=== PATIENT | female | born 1935 | race Caucasian/White ===

== ENCOUNTER 2016-07-21 15:24 | Inpatient (IN) | payer OTHER ==
[~2016-07-21] VITALS: Ht 157.5 cm; Wt 50.8 kg
--- NOTE | 2016-07-21 15:32 | NUR ---
BIBA FROM [facility] FOR RIGHT HIP PAIN S/P FALL. PT WAS TRYING TO MOVE HER WHEELCHAIR, FELL DOWN TO FLOOR ON BUTTOCKS. DENIES HEADSTRIKE OR LOC. UPON ARRIVAL PT A+OX4, RIGHT HIP ROTATED. C/O PAIN FROM RIGHT HIP DOWN TO RIGHT ANKLE. SHAHRIAR HENDRIX AT BEDSIDE UPON ARRIVAL.
--- NOTE | 2016-07-21 15:44 | ED MVC/FALL/TRAUMA COMPLAINT ---
History of Present Illness General Chief Complaint: Fall Stated Complaint: BIBA FOR FALL Source: patient, EMS Exam Limitations: no limitations Vital Signs & Intake/Output Vital Signs & Intake/Output Vital Signs Date Time Temp Pulse Resp B/P Pulse O2 O2 Flow FiO2 Ox Delivery Rate 07/24 1404 98.0 80 20 125/70 94 / 0708 98.1 86 20 118/64 96 Room Air 07/23 2221 99.0 84 20 124/60 94 Room Air ED Intake and Output 07/24 0000 07/23 1200 Intake Total 2605 700 Output Total 650 275 Balance 1955 425 Intake, Blood 700 Product Intake, IV 825 600 Intake, Oral 1080 100 Number 3 0 Bowel Movements Output, Urine 650 275 Allergies Coded Allergies: Influenza Virus Vaccines (NOTED ON W-10 07/21/16) Reconcile Medications Acetaminophen 500 MG TABLET 2 TAB PO BID PAIN (Reported) Acetaminophen (Acephen) 650 MG SUPP.RECT 1 SUPP FL Q4H PRN PAIN/TEMP>101 ( Reported) Acetaminophen 325 MG CAPSULE 2 CAP PO Q4H PRN PAIN/TEMP>101 (Reported) Aspirin (Ecotrin*) 81 MG TABLET.DR 1 TAB PO DAILY HEART/BLOOD (Reported) Bisacodyl (Dulcolax) 10 MG SUPP.RECT 1 SUP RC DAILY PRN CONSTIPATION ( Reported) Carbidopa/Levodopa (Carbidopa-Levodopa 25-100 Tab) 25 MG-100 MG TABLET 2 TAB PO TID PARKINSONS (Reported) Cyanocobalamin (Vitamin B-12) (Cyanocobalamin Injection) 1,000 MCG/ML VIAL 1 ML IM Q30D SUPPLEMENT (Reported) Diclofenac Sodium (Voltaren) 1 % GEL..GRAM. 4 GM TOP TID NECK (Reported) apply to affected area(s) Docusate Sodium (Colace) 100 MG CAPSULE 1 CAP PO DAILY STOOL SOFTENER ( Reported) Ergocalciferol (Vitamin D2) (Vitamin D2) 50,000 UNIT CAPSULE 1 CAP PO Q30D SUPPLMENT (Reported) Escitalopram Oxalate (Lexapro) 10 MG TABLET 1 TAB PO QAM MENTAL HEALTH ( Reported) Gabapentin (Neurontin) 300 MG CAPSULE 1 CAP PO QHS UNKNOWN (Reported) Gabapentin (Neurontin) 100 MG CAPSULE 1 CAP PO TID UNKNOWN (Reported) Magnesium Hydroxide (Milk Of Magnesia) 400 MG/5 ML ORAL.SUSP 30 ML PO Q3D PRN CONSTIPATION (Reported) Melatonin 3 MG TABLET 1 TAB PO QPM SUPPLEMENT (Reported) Morphine Sulfate (Morphine Sulfate ER) 60 MG TABLET.ER 1 TAB PO Q12H PAIN ( Reported) Na Phos,M-B/Na Phos,Di-Ba (Fleet Enema) 19 GRAM-7 GRAM/118 ML ENEMA 1 E RC DAILY PRN CONSTIPATION (Reported) Naloxone HCl 0.4 MG/ML VIAL 0.4 MG SYDNEE AD PRN OPIOID REDUCED RESP. DEPRESSIO (Reported) Oxycodone HCl 5 MG TABLET 1 TAB PO Q12H PRN PAIN (Reported) Propylene Glycol/Peg 400/Pf (Systane 0.3-0.4% Eye Drops) 0.3 %-0.4 % DROPERETTE 1 DROP OPH DAILY BOTH EYES (Reported) Sennosides (Senna) 8.6 MG TABLET 1 TAB PO QPM GI (Reported) Tizanidine HCl (Unknown Strength) TABLET (Unknown Dose) PO AD MUSCLE RELAXER (Reported) Triage Note: BIBA FROM [facility] FOR RIGHT HIP PAIN S/P FALL. PT WAS TRYING TO MOVE HER WHEELCHAIR, FELL DOWN TO FLOOR ON BUTTOCKS. DENIES HEADSTRIKE OR LOC. UPON ARRIVAL PT A+OX4, RIGHT HIP ROTATED. C/O PAIN FROM RIGHT HIP DOWN TO RIGHT ANKLE. SHAHRIAR HENDRIX AT BEDSIDE UPON ARRIVAL. Triage Nurses Notes Reviewed? yes Onset: Abrupt Duration: minute(s):, hour(s): Timing: single episode today Severity: severe Injuries/Fall Location: lower extremity Method of Injury: fall Loss of Consciousness: no loss of consciousness No Modifying Factors: none HPI: 81-year-old female brought into the emergency room for further evaluation of right hip pain. Patient comes from long-term. Patient was reportedly transferring herself into her wheelchair and fell down on her right hip and has severe pain since the fall. Denies any head injury. Denies any neck pain. Patient is completely alert and oriented. Pain is moderate to severe. Deformity. Brought in by ambulance. (NORMAN BESS,SIMEON) Past History Travel History Traveled to [place] past 21 day No Medical History Any Pertinent Medical History? see below for history Surgical History Surgical History: non-contributory Psychosocial History What is your primary language Libyan Tobacco Use: Never used ETOH Use: denies use Illicit Drug Use: denies illicit drug use Family History Hx Contributory? No (SIMEON SAUNDERS) Review of Systems Review of Systems Constitutional: Reports: no symptoms. Eyes: Reports: no symptoms. Ears, Nose, Throat, Mouth: Reports: no symptoms. Respiratory: Reports: no symptoms. Cardiovascular: Reports: no symptoms. Gastrointestinal/Abdominal: Reports: no symptoms. Genitourinary: Reports: no symptoms. Musculoskeletal: Reports: see HPI. Skin: Reports: no symptoms. Neurological/Psychological: Reports: no symptoms. All Other Systems: Reviewed and Negative (SIMEON SAUNDERS) Physical Exam Physical Exam General Appearance: well developed/nourished, no apparent distress, alert Head: atraumatic, normal appearance Eyes: Bilateral: normal appearance. Ears, Nose, Throat, Mouth: hearing grossly normal, moist mucous membrane Neck: normal inspection, full range of motion Respiratory: normal breath sounds, no respiratory distress Extremities: deformity right hip, swelling, tenderness, limited range of motion, Neurologic/Psych: awake, alert, oriented x 3, normal mood/affect, right dorsalis pedis intact Skin: intact, normal color Core Measures ACS in differential dx? No Severe Sepsis Present: No Septic Shock Present: No (SIMEON SAUNDERS) Progress Differential Diagnosis: abd injury, C/T/L spine injury, ext injury, ICH, pelvis injury, pnemothorax, spinal cord injury Plan of Care: Orders Procedure Date/time Status Wound Care/Dressing 07/25 1000 Active CBC WITHOUT DIFFERENTIAL 07/25 0600 Active BASIC ELECTROLYTES PLUS BUN&CR 07/25 0600 Active Anticipated Discharge 07/25 UNK Active Change service to 07/24 0800 Active Therapeutic Activities 07/24 UNK Complete PT EVAL LOW COMPLEX 20 MIN 07/24 UNK Complete Current Medications Sig/Carisa Start time Last Medication Dose Stop Time Status Admin Tramadol HCl 50 MG Q6P PRN 07/24 1345 AC (Ultram) Alprazolam 0.25 MG BID PRN 07/24 1215 AC (Xanax) 07/31 1214 Oxycodone/ 1 TAB Q6P PRN 07/24 0745 AC Acetaminophen (Percocet) Laboratory Tests 07/24/16 0654: Anion Gap 7, Estimated GFR > 60, BUN/Creatinine Ratio 27.5 H, Magnesium 1.7, CBC w Diff NO MAN DIFF REQ, RBC 3.15 L, MCV 90.0, MCH 30.9, RDW 14.5, MPV 10.0, Gran % 82.4 H, Lymphocytes % 5.3 L, Monocytes % 12.1 H, Eosinophils % 0.1, Basophils % 0.1, Absolute Granulocytes 9.9 H, Absolute Lymphocytes 0.6 L, Absolute Monocytes 1.5 H, Absolute Eosinophils 0, Absolute Basophils 0, PUBS MCHC 34.4 Diagnostic Imaging: Viewed by Me: Radiology Read. Discussed w/RAD: Radiology Read. Radiology Impression: SERVICE DATE: 07/21/16 EXAM TYPE: RAD - XRY-ANKLE 3 OR MORE VIEWS R; XRY-HIP 2-3 VIEWS, RIGHT; XRY-KNEE COMPLETE RIGHT; XRY-PORTABLE CHEST XRAY; [id number]-[id number]-COZAGD, RIGHT EXAMINATION: X-ray chest X-ray right hip X- ray right knee X-ray right tibia and fibula X-ray right ankle CLINICAL INFORMATION: Status post fall. COMPARISON: None TECHNIQUE: Portable AP chest 2 views of the right hip 2 views of the right knee 2 views of the right tibia and fibula and 2 views of the right ankle FINDINGS: CHEST: Patient is rotated limiting the evaluation. Visualized lungs are clear. No obvious pneumothorax. Age indeterminate mild decrease T12 vertebral body height. RIGHT HIP Acute fracture involving the femoral neck and intertrochanteric region with moderate displacement of the fracture fragments with superior displacement of the distal fragment and varus angulation. Femoral head is articulating within the acetabulum. Visualized pelvic bones demonstrate bony osteopenia limiting the evaluation for subtle fractures. No gross fracture identified. Atherosclerotic disease of the visualized femoral artery and branches. RIGHT KNEE Severe degenerative changes right knee notably lateral tibiofemoral compartment with significant loss of joint space and osteophyte formation with sclerosis of the articular surfaces. Degenerative changes also noted in the medial tibiofemoral and patellofemoral compartments. Small to moderate joint effusion. Lateral radiograph demonstrates anterior ossific density extending beyond the confines of the tibial plateau. This may represent soft tissue calcific/ossific density projecting upon the tibial plateau region on the lateral radiograph. Similar density is noted lateral to the lateral femoral condyle on the AP radiograph. Atherosclerotic disease. Distal femoral artery demonstrates vascular stent. RIGHT TIBIA AND FIBULA AND ANKLE Moderate degenerative changes noted in the right ankle. Posterior and inferior calcaneal spurs. Atherosclerotic disease with intimal calcification. No evidence of acute fracture or dislocation. IMPRESSION: 1. Acute probable comminuted fracture intertrochanteric region proximal right femur with varus angulation and displacement of the fracture fragments. 2. Severe degenerative changes right knee and mild to moderate degenerative changes right hip and right ankle. 3. Ossific/calcific density projecting anterior to the tibial plateau on the lateral radiographs most likely represents soft tissue density projecting anteriorly on the lateral radiograph. Clinical correlation is also recommended. Small to moderate knee effusion. 4. Age indeterminate mild compression T8 vertebra. DICTATED BY: CHANDRAKANT BLAS MD DATE/TIME DICTATED:07/21/161699 POST DOC FELLOWSHIP:YAQUELIN DATE/TIME TRANSCRIBED:07/21/161699 Initial ED EKG: normal intervals, normal p-waves, normal sinus rhythm, rate (68) , nonspecific ST T wave chg, first-degree AV block (SIMEON SAUNDERS) Departure Departure Disposition: STILL A PATIENT Condition: Stable Clinical Impression Primary Impression: Closed intertrochanteric fracture of right femur Referrals: TOMER JOSEPH MD (PCP/Family) Departure Forms: Customer Survey General Discharge Information Admission Note Spoke With: PRASANNA ARVIZU MD Documentation of Exam: Documentation of any treatments & extenuating circumstances including Concerns Regarding Discharge (functional status, medication knowledge or non-compliance, living conditions, etc.) that warrant an admission rather than observation: Patient will require IV pain control. Surgery. High risk. Unable to weight- bear. Patient will also require cardiac clearance. (SIMEON SAUNDERS) PA/CPC CODER Co-Sign Statement Statement: ED Attending supervision documentation- [X] I saw and evaluated the patient. I have also reviewed all the pertinent lab results and diagnostic results. I agree with the findings and the plan of care as documented in the PA's/CPC CODER's documentation. [X] I have reviewed the ED Record and agree with the PA's/CPC CODER's documentation. [] Additions or exceptions (if any) to the PAs/CPC CODER's note and plan are summarized below: [] (CHERYL LANE,MAURISIO)
--- NOTE | 2016-07-21 15:56 | NUR ---
MEDICATED WITH 0.6MG DILAUDID FOR PAIN 01/28
[2016-07-21 15:59] LABS: ABSOLUTE BASOPHIL COUNT 0.1 /CUMM (0.0-0.2); ABSOLUTE EOSINOPHIL COUNT 0.1 /CUMM (0.0-0.7); ABSOLUTE LYMPH COUNT 1.4 /CUMM (1.2-3.4); ABSOLUTE MONOCYTE COUNT 1.2 /CUMM (0.10-0.60); BASOPHIL % 0.6 % (0.0-2.0); EOSINOPHIL % 1.4 % (0-5); GRANULOCYTE % 68.2 % (42.2-75.2); HEMATOCRIT 32.3 % (37-47); MEAN CORPUSCULAR HGB 30.5 PG (27.0-31.0); MEAN CORPUSCULAR HGB CONC 33.6 G/DL (33.0-37.0); MEAN CORPUSCULAR VOLUME 90.7 FL (81.0-99.0); MEAN PLATELET VOLUME 9.6 FL (7.4-10.4); PLATELET COUNT 243 /CUMM (130-400); RBC DISTRIBUTION WIDTH 14.2 % (11.5-14.5); RED BLOOD CELL CT 3.57 /CUMM (4.20-5.40); WHITE BLOOD CELL COUNT 8.9 /CUMM (4.8-10.8)
[2016-07-21 16:07] LABS: PT 11.8 SEC (9.4-12.5); PTT 33 SEC (25-37)
--- NOTE | 2016-07-21 16:13 | NUR ---
PT TO RADIOLOGY VIA STRETCHER
--- NOTE | 2016-07-21 17:03 | NUR ---
PT STATES SHE IS STILL IN A LOT OF PAIN. WILL CONTINUE TO MONITOR
--- NOTE | 2016-07-21 17:16 | RADIOLOGY REPORT ---
EXAMINATION: X-ray chest X-ray right hip X-ray right knee X-ray right tibia and fibula X-ray right ankle CLINICAL INFORMATION: Status post fall. COMPARISON: None TECHNIQUE: Portable AP chest 2 views of the right hip 2 views of the right knee 2 views of the right tibia and fibula and 2 views of the right ankle FINDINGS: CHEST: Patient is rotated limiting the evaluation. Visualized lungs are clear. No obvious pneumothorax. Age indeterminate mild decrease T12 vertebral body height. RIGHT HIP Acute fracture involving the femoral neck and intertrochanteric region with moderate displacement of the fracture fragments with superior displacement of the distal fragment and varus angulation. Femoral head is articulating within the acetabulum. Visualized pelvic bones demonstrate bony osteopenia limiting the evaluation for subtle fractures. No gross fracture identified. Atherosclerotic disease of the visualized femoral artery and branches. RIGHT KNEE Severe degenerative changes right knee notably lateral tibiofemoral compartment with significant loss of joint space and osteophyte formation with sclerosis of the articular surfaces. Degenerative changes also noted in the medial tibiofemoral and patellofemoral compartments. Small to moderate joint effusion. Lateral radiograph demonstrates anterior ossific density extending beyond the confines of the tibial plateau. This may represent soft tissue calcific/ossific density projecting upon the tibial plateau region on the lateral radiograph. Similar density is noted lateral to the lateral femoral condyle on the AP radiograph. Atherosclerotic disease. Distal femoral artery demonstrates vascular stent. RIGHT TIBIA AND FIBULA AND ANKLE Moderate degenerative changes noted in the right ankle. Posterior and inferior calcaneal spurs. Atherosclerotic disease with intimal calcification. No evidence of acute fracture or dislocation. IMPRESSION: 1. Acute probable comminuted fracture intertrochanteric region proximal right femur with varus angulation and displacement of the fracture fragments. 2. Severe degenerative changes right knee and mild to moderate degenerative changes right hip and right ankle. 3. Ossific/calcific density projecting anterior to the tibial plateau on the lateral radiographs most likely represents soft tissue density projecting anteriorly on the lateral radiograph. Clinical correlation is also recommended. Small to moderate knee effusion. 4. Age indeterminate mild compression T8 vertebra.
[2016-07-21] MEDS ORDERED: ASPIRIN EC81 M1 PO (18:25)
[2016-07-21] MEDS ORDERED: TIZANIDINE HCL2 M1 PO (18:28)
[2016-07-21] MEDS ORDERED: MORPHINE SULFAT60 M4 PO (18:29)
[2016-07-21] MEDS ORDERED: ACETAMINOPHEN500 M4 PO (18:30)
[2016-07-21] MEDS ORDERED: NEURONTIN300 M1 PO (18:31)
[2016-07-21] MEDS ORDERED: NEURONTIN100 M1 PO (18:31)
[2016-07-21] MEDS ORDERED: LEXAPRO10 M1 PO (18:33)
[2016-07-21] MEDS ORDERED: NALOXONE H0.4 MG/11 NAS (18:37)
[2016-07-21] MEDS ORDERED: SENNA8.6 M3 PO (18:39)
[2016-07-21] MEDS ORDERED: COLACE100 M1 PO (18:41)
--- NOTE | 2016-07-21 18:41 | NUR ---
CATHY (SCOT) UPDATED ON POC
[2016-07-21] MEDS ORDERED: CARBIDOPA-LEVO1 EAC7 PO (18:42)
[2016-07-21] MEDS ORDERED: MELATONIN3 M4 PO (18:43)
[2016-07-21] MEDS ORDERED: VITAMIN D250000 UNIT PO (18:45)
[2016-07-21] MEDS ORDERED: CYANOCOBAL1000 MCG/2 IM (18:47)
[2016-07-21] MEDS ORDERED: ACEPHEN650 M1 PR (18:52)
[2016-07-21] MEDS ORDERED: ACETAMINOPHEN325 M3 PO (18:53)
[2016-07-21] MEDS ORDERED: OXYCODONE HCL5 M1 PO (18:54)
[2016-07-21] MEDS ORDERED: DULCOLAX10 M1 RC (18:55)
[2016-07-21] MEDS ORDERED: FLEET ENEMA133 ML RC (18:56)
[2016-07-21] MEDS ORDERED: MILK OF MA400 MG/52 PO (18:57)
[2016-07-21] MEDS ORDERED: SYSTANE 0.3-0.1 EACH OPH (18:58)
[2016-07-21] MEDS ORDERED: VOLTAREN100 GM TOP (18:59)
--- NOTE | 2016-07-21 19:25 | History & Physical ---
See Addendum General Information and HPI MD Statement: I have seen and personally examined ARMIDA SUTHERLAND and documented this H&P. The patient is a 81 year old F who presented with a patient stated chief complaint of [mechanical fall]. Source of Information: patient, W10 Exam Limitations: no limitations History of Present Illness: Mr. Sutherland is 81 year old lady with chief complain of right hip pain after unwitnessed mechanical fall. Patient has past medical history of Parkinson disease, severe osteoarthritis all over her body, macular degeneration bilateral , vitamin B12 deficiency, peripheral vascular disease with stent placement in the left leg (no clear history about this). Patient brought in by ambulance from [facility] after mechanical fall, patient was trying to transfer herself using a wheelchair and fwll on her right side, she reported hitting her right hip against the floor, denied trauma to the head, loss of consciousness, seizure, chest pain, palpitation, dizziness or lightheadedness. Patient was moving by herself and due to history of multiple falls was admitted to [facility] 2 years ago. She needs help for ADL although she can use the bathroom during the morning time without help. Her power of ip technology transactions attorney is her nephew, Mr. Gavin Coronel Allergies/Medications Allergies: Coded Allergies: Influenza Virus Vaccines (NOTED ON W-10 07/21/16) Home Med list Acetaminophen 500 MG TABLET 2 TAB PO BID PAIN (Reported) Acetaminophen (Acephen) 650 MG SUPP.RECT 1 SUPP [place] Q4H PRN PAIN/TEMP>101 ( Reported) Acetaminophen 325 MG CAPSULE 2 CAP PO Q4H PRN PAIN/TEMP>101 (Reported) Aspirin (Ecotrin*) 81 MG TABLET.DR 1 TAB PO DAILY HEART/BLOOD (Reported) Bisacodyl (Dulcolax) 10 MG SUPP.RECT 1 SUP RC DAILY PRN CONSTIPATION ( Reported) Carbidopa/Levodopa (Carbidopa-Levodopa 25-100 Tab) 25 MG-100 MG TABLET 2 TAB PO TID PARKINSONS (Reported) Cyanocobalamin (Vitamin B-12) (Cyanocobalamin Injection) 1,000 MCG/ML VIAL 1 ML IM Q30D SUPPLEMENT (Reported) Diclofenac Sodium (Voltaren) 1 % GEL..GRAM. 4 GM TOP TID NECK (Reported) apply to affected area(s) Docusate Sodium (Colace) 100 MG CAPSULE 1 CAP PO DAILY STOOL SOFTENER ( Reported) Ergocalciferol (Vitamin D2) (Vitamin D2) 50,000 UNIT CAPSULE 1 CAP PO Q30D SUPPLMENT (Reported) Escitalopram Oxalate (Lexapro) 10 MG TABLET 1 TAB PO QAM MENTAL HEALTH ( Reported) Gabapentin (Neurontin) 300 MG CAPSULE 1 CAP PO QHS UNKNOWN (Reported) Gabapentin (Neurontin) 100 MG CAPSULE 1 CAP PO TID UNKNOWN (Reported) Magnesium Hydroxide (Milk Of Magnesia) 400 MG/5 ML ORAL.SUSP 30 ML PO Q3D PRN CONSTIPATION (Reported) Melatonin 3 MG TABLET 1 TAB PO QPM SUPPLEMENT (Reported) Morphine Sulfate (Morphine Sulfate ER) 60 MG TABLET.ER 1 TAB PO Q12H PAIN ( Reported) Na Phos,M-B/Na Phos,Di-Ba (Fleet Enema) 19 GRAM-7 GRAM/118 ML ENEMA 1 E RC DAILY PRN CONSTIPATION (Reported) Naloxone HCl 0.4 MG/ML VIAL 0.4 MG SYDNEE AD PRN OPIOID REDUCED RESP. DEPRESSIO (Reported) Oxycodone HCl 5 MG TABLET 1 TAB PO Q12H PRN PAIN (Reported) Propylene Glycol/Peg 400/Pf (Systane 0.3-0.4% Eye Drops) 0.3 %-0.4 % DROPERETTE 1 DROP OPH DAILY BOTH EYES (Reported) Sennosides (Senna) 8.6 MG TABLET 1 TAB PO QPM GI (Reported) Tizanidine HCl (Unknown Strength) TABLET (Unknown Dose) PO AD MUSCLE RELAXER (Reported) Past History Travel History Traveled to [place] past 21 day No Medical History Neurological: Parkinson's disease EENT: macular degeneration Cardiovascular: NONE, PVD Respiratory: NONE Gastrointestinal: NONE Hepatic: NONE Renal: NONE Musculoskeletal: NONE Surgical History Surgical History: Left vascular stent (not specific) Past Family/Social History Psychosocial History ETOH Use: denies use Illicit Drug Use: denies illicit drug use Functional Ability ADLs Needs Assist: dressing, eating, toileting, bathing. Review of Systems Review of Systems Constitutional: Denies: fever, malaise, weakness. EENTM: Denies: nasal congestion. Cardiovascular: Denies: chest pain, orthopena, palpitations. Respiratory: Denies: cough, short of breath. GI: Denies: abdominal pain, constipation, diarrhea, nausea, vomiting. Genitourinary: Denies: dysuria, hematuria. Skin: Denies: rash. Neurological/Psychological: Denies: headache. Exam & Diagnostic Data Last 24 Hrs of Vital Signs/I&O Vital Signs Date Time Temp Pulse Resp B/P Pulse O2 O2 Flow FiO2 Ox Delivery Rate 07/22 2019 96.5 77 16 154/66 100 Room Air 07/21 1831 96.5 79 16 170/00 99 Room Air 07/21 1557 100 Room Air 07/21 1531 96.0 76 16 158/85 100 Room Air Intake & Output 07/21 1600 07/21 0800 07/21 0000 Intake Total 0 Output Total Balance 0 Intake, Oral 0 Patient 50.802 kg Weight Physical Exam General Appearance Alert, Oriented X3, Cooperative, No Acute Distress Skin No Rashes, No Breakdown, No Significant Lesion, no bruces HEENT Atraumatic, PERRLA, EOMI, Mucous Membr. moist/pink Neck Supple, No JVD Lymphatic no cervical lymphadenopathy Cardiovascular Regular Rate, Normal S1, Normal S2, No Murmurs Lungs Clear to Auscultation, Normal Air Movement Abdomen Normal Bowel Sounds, Soft, No Tenderness Neurological Normal Speech, Strength at 5/5 X4 Ext, Normal Tone, Sensation Intact, Cranial Nerves 3-12 NL, Reflexes 2+ Extremities No Clubbing, No Cyanosis, No Edema, Normal Pulses Assessment/Plan Assessment: Ms. Sutherland is a 21 year old lady with past medical history of Parkinson disease, severe atherosclerosis all over her body, vitamin B12 deficiency, bilateral macular degeneration, nonspecific history of vascular stent on the left lower limb presented to ED on 07/21/16 with chief complaint of right hip pain after unwitnessed mechanical fracture. On admission Vital signs temperature 90.6, pulse 76, blood pressure 158/85, respiratory rate 16 on room air with saturation 100% Lab H&H 10.9/32.3, WBC 8.9, platelet 243, sodium 139, potassium 4.3, BUN/creatinine 20/0.7 Imaging X-ray chest X-ray right hip X-ray right knee X-ray right tibia and fibula X-ray right ankle IMPRESSION: 1. Acute probable comminuted fracture intertrochanteric region proximal right femur with varus angulation and displacement of the fracture fragments. 2. Severe degenerative changes right knee and mild to moderate degenerative changes right hip and right ankle. 3. Ossific/calcific density projecting anterior to the tibial plateau on the lateral radiographs most likely represents soft tissue density projecting anteriorly on the lateral radiograph. Clinical correlation is also recommended. Small to moderate knee effusion. 4. Age indeterminate mild compression T8 vertebra. Problem list #Right intertrochanteric femur fracture with angulation and displacement #Parkinson disease #Osteoarthritis #Right intertrochanteric femur fracture with angulation and displacement -RCRI risk is 0.9% for high cardic risk -Orthopedic consultation -Peroperative cardic clearance, will consult Dr. Vizcarra -Blood type and crossmatch -Keep patient nothing by mouth and continue D5 half-normal IV fluid maintenance 50 mL/h -Obtain INR -Adequate pain management Acetaminophen 650 every 6 when necessary Tramadol 50 every 6 when necessary Morphine 2 mg IV every 4 when necessary #Parkinson disease -Continue home dose Sinemet -Continue Lexapro 10 mg every a.m. by mouth #Osteoarthritis -Continue pain management -Continue gabapentin 100 mg 3 times a day by mouth and 300 mg at bedtime DVT prophylaxis heparin subcutaneous CODE STATUS DNR/DNI, Full code for the surgery Diet nothing by mouth Consultation orthopedic surgery, cardiology As Ranked By This Provider Problem List: 1. Closed intertrochanteric fracture of right femur Core Measures/Miscellaneous Acute Coronary Syndrome ACS Diagnosis: No Cerebrovascular Accident CVA/TIA Diagnosis: No Congestive Heart Failure CHF Diagnosis: No Venous Thromboembolism VTE Risk Factors: Age > 40 [facility] prophylaxis d/t: Surgical procedure LE No VTE Pharm Prophylaxis d/t: No contraindications VTE Diagnosis: No VTE Type: NONE VTE Confirmed by (Test): NONE Severe Sepsis Severe Sepsis Present: No Septic Shock Septic Shock Present: No Miscellaneous Documentation Attending Case Discussed With: PRASANNA ARVIZU MD Primary Care Physician: TOMER JOSEPH MD Patient sees these Specialists perviously 2 years ago Orthopedic for osteoarthritis and neurology for Parkinson disease Level of Patient Care: General Medicine
--- NOTE | 2016-07-21 19:45 | NUR ---
PT STATES PAIN IS MILDLY BETTER AFTER MORPHINE ADMINISTRATION
--- NOTE | 2016-07-21 20:09 | NUR ---
Emergency Dept [facility] Admit Note: To be admitted to [facility] by DR ARVIZU with HIP FRACTURE as the diagnosis, to [facility] location. Nursing [employer] and admitting notified 07/21/16 at 1940 PT WILL GO TO ROOM [facility]
--- NOTE | 2016-07-21 20:16 | NUR ---
REPORT GIVEN TO CARLENE VASQUEZ
--- NOTE | 2016-07-21 21:02 | NUR ---
[employer] CALLED AGAIN FOR TRANSPORT
--- NOTE | 2016-07-21 21:13 | Cons- Orthopedic ---
General Information and HPI Consulting Request Date of Consult: 07/21/16 Requested By: PRASANNA ARVIZU MD Reason for Consult: Right intertrochanteric hip fracture Source of Information: patient, old records History of Present Illness: Mrs. Santso is 81 year old lady with chief complaint of right hip pain after unwitnessed mechanical fall. She states that she was attempting to separate her wheel chair from her roommate's wheel chair in order to be able to utilize it. Because the two wheel chairs were stuck together, she lost her balance and states that she fell on to her buttocks. She recalls that her right leg was crossed across her body prior to her fall and she feels that may have contributed to the fracture she sustained. She denies any head trauma or loss of conciousness. She was brought in by ambulance from [facility], her current place of residence. Patient was living by herself and due to history of multiple falls was admitted to [facility] 2 years ago. She needs help for ADL although she can use the bathroom during the morning time without help. Patient has past medical history of Parkinson disease, severe osteoarthritis in multiple locations, macular degeneration bilaterally, vitamin B12 deficiency, peripheral vascular disease with stent placement in the left leg (no clear history about this). Allergies/Medications Allergies: Coded Allergies: Influenza Virus Vaccines (NOTED ON W-10 07/21/16) Home Med List: Acetaminophen 500 MG TABLET 2 TAB PO BID PAIN (Reported) Acetaminophen (Acephen) 650 MG SUPP.RECT 1 SUPP OK Q4H PRN PAIN/TEMP>101 ( Reported) Acetaminophen 325 MG CAPSULE 2 CAP PO Q4H PRN PAIN/TEMP>101 (Reported) Aspirin (Ecotrin*) 81 MG TABLET.DR 1 TAB PO DAILY HEART/BLOOD (Reported) Bisacodyl (Dulcolax) 10 MG SUPP.RECT 1 SUP RC DAILY PRN CONSTIPATION ( Reported) Carbidopa/Levodopa (Carbidopa-Levodopa 25-100 Tab) 25 MG-100 MG TABLET 2 TAB PO TID PARKINSONS (Reported) Cyanocobalamin (Vitamin B-12) (Cyanocobalamin Injection) 1,000 MCG/ML VIAL 1 ML IM Q30D SUPPLEMENT (Reported) Diclofenac Sodium (Voltaren) 1 % GEL..GRAM. 4 GM TOP TID NECK (Reported) apply to affected area(s) Docusate Sodium (Colace) 100 MG CAPSULE 1 CAP PO DAILY STOOL SOFTENER ( Reported) Enoxaparin Sodium (Lovenox) 40 MG/0.4 ML SYRINGE 40 MG SC DAILY DVT prophylaxis Please consult with orthopedics after the 2 weeks for further recommendations on DVT prophylaxis Ergocalciferol (Vitamin D2) (Vitamin D2) 50,000 UNIT CAPSULE 1 CAP PO Q30D SUPPLMENT (Reported) Escitalopram Oxalate (Lexapro) 10 MG TABLET 1 TAB PO QAM MENTAL HEALTH ( Reported) Ferrous Sulfate 325 MG (65 MG IRON) TABLET 1 TAB PO BID Anemia Gabapentin (Neurontin) 300 MG CAPSULE 1 CAP PO QHS UNKNOWN (Reported) Gabapentin (Neurontin) 100 MG CAPSULE 1 CAP PO TID UNKNOWN (Reported) Magnesium Hydroxide (Milk Of Magnesia) 400 MG/5 ML ORAL.SUSP 30 ML PO Q3D PRN CONSTIPATION (Reported) Melatonin 3 MG TABLET 1 TAB PO QPM SUPPLEMENT (Reported) Na Phos,M-B/Na Phos,Di-Ba (Fleet Enema) 19 GRAM-7 GRAM/118 ML ENEMA 1 E RC DAILY PRN CONSTIPATION (Reported) Naloxone HCl 0.4 MG/ML VIAL 0.4 MG SYDNEE AD PRN OPIOID REDUCED RESP. DEPRESSIO (Reported) Oxycodone HCl 5 MG TABLET 1 TAB PO Q12H PRN PAIN (Reported) Propylene Glycol/Peg 400/Pf (Systane 0.3-0.4% Eye Drops) 0.3 %-0.4 % DROPERETTE 1 DROP OPH DAILY BOTH EYES (Reported) Sennosides (Senna) 8.6 MG TABLET 1 TAB PO QPM GI (Reported) Tizanidine HCl (Unknown Strength) TABLET (Unknown Dose) PO AD MUSCLE RELAXER (Reported) Tramadol HCl 50 MG TABLET 1 TAB PO Q6P PRN PAIN SCALE 4-6 (MODERATE) Please consult orthopedics if continued analgesia is required beyond 2 weeks Past History Medical History Neurological: Parkinson's disease EENT: macular degeneration Cardiovascular: NONE, PVD Respiratory: NONE Gastrointestinal: NONE Hepatic: NONE Renal: NONE Musculoskeletal: NONE Surgical History Pertinent Surgical History: Left vascular stent (not specific) Psychosocial History ETOH Use: denies use Illicit Drug Use: denies illicit drug use Functional Ability ADLs Needs Assist: dressing, eating, toileting, bathing. Review of Systems Review of Systems: Review of Systems Constitutional: Denies: fever, malaise, weakness. EENTM: Denies: nasal congestion. Cardiovascular: Denies: chest pain, orthopena, palpitations. Respiratory: Denies: cough, short of breath. GI: Denies: abdominal pain, constipation, diarrhea, nausea, vomiting. Genitourinary: Denies: dysuria, hematuria. Skin: Denies: rash. Neurological/Psychological: Denies: headache. Exam & Diagnostic Data Vital Signs and I&O Vital Signs Date Time Temp Pulse Resp B/P Pulse O2 O2 Flow FiO2 Ox Delivery Rate 07/22 2019 96.5 77 16 154/66 100 Room Air 07/21 1831 96.5 79 16 170/00 99 Room Air 07/21 1557 100 Room Air 07/21 1531 96.0 76 16 158/85 100 Room Air Intake & Output 07/21 1600 07/21 0800 07/21 0000 07/20 1600 07/20 0800 07/20 0000 Intake Total 0 Output Total Balance 0 Intake, Oral 0 Patient 112 lb Weight Physical Exam: General Appearance Alert, Oriented X3, Cooperative, No Acute Distress Skin No Rashes, No Breakdown, No Significant Lesions noted, no bruises HEENT Atraumatic, PERRLA, EOMI, Mucous Membr. moist/pink Neck Supple, No JVD Lymphatic no cervical lymphadenopathy Cardiovascular Regular Rate, Normal S1, Normal S2, No Murmurs Lungs Clear to Auscultation, Normal Air Movement Abdomen Normal Bowel Sounds, Soft, No Tenderness Neurological Normal Speech, Strength at 5/5 X4 Ext, Normal Tone, Sensation Intact, Cranial Nerves 3-12 NL, Reflexes 2+ Extremities No Clubbing, No Cyanosis, No Edema, Normal Pulses, right leg shortened and internally rotated at the present time Assessment/Plan Assessment/Plan This is a 81 year old female with a PMH significant for parkinsons and depression. She presents to ER today after sustaining a mechanical fall resulting in a right hip intertrochanteric fracture. -Admit to medical service for primary management -Await medical clearance -Plan for surgical intervention with intermedullary nail placement -Will discuss with Dr. Lara Consult Acknowledgment - Thank you for your consult request.
[2016-07-21 22:53] VITALS: BP 120/0
--- NOTE | 2016-07-21 23:11 | NUR ---
PATIENT ADMITTED FROM THE ER AROUND 2200. PATIENT ALERT AND ORIENTED X 3. C/O PAIN TO RIGHT HIP. MORAES INTACT, PATENT AND DRAINING CLEAR YELLOW URINE. CALL LIGHT WITHIN REACH. PATIENT WITH MACULAR DEGENERATION. ALPS IN PLACE. WILL CONTINUE TO MONITOR.
--- NOTE | 2016-07-22 02:43 | PN- Att Addend ---
Attending Addendum Attending Brief Note CC: fall PMHx : Parkinson's disease, osteoarthritis, neuropathy, peripheral vascular disease S/P stent Patient was brought in by EMS from [facility] for fall, patient was trying to move her wheelchair and fell down on the floor on right buttock, complaining of right hip pain. She denies any head injury, LOC, seizures, confusion, chest pain, dizziness, palpitations, neck pain after fall. Patient denies any history of coronary artery disease, heart failure. She never had a stress test, her 2-D echo was long time back according to her. She denies any dyspnea, chest pain, palpitations at rest or at exertion before the fall. No on and off extremity swellings. Vitals: Afebrile, pulse, RRR, blood pressure, O2 saturation stable at arrival. On examination a O 3, no JVD, no lymphadenopathy, mucosa dry. Obvious internally rotated right lower extremity, patient appears in pain. CVS: S1-S2, systolic murmur 2/6 in mitral area, RS: Clear to auscultate bilaterally. Abdomen : Soft, NT, ND, bowel sounds present. Peripheral pulses perfusion normal. no obvious focal neurological deficits, cannot check strength in lower extremity. Labs: Hemoglobin 10.9, MCV 90.3, INR 1.13 otherwise BMP and LFT unremarkable. X-ray chest, X-ray right hip, X-ray right knee, X-ray right tibia and fibula, X- ray right ankle 1. Acute probable comminuted fracture intertrochanteric region proximal right femur with varus angulation and displacement of the fracture fragments. 2. Severe degenerative changes right knee and mild to moderate degenerative changes right hip and right ankle. 3. Ossific/calcific density projecting anterior to the tibial plateau on the lateral radiographs most likely represents soft tissue density projecting anteriorly on the lateral radiograph. Clinical correlation is also recommended. Small to moderate knee effusion. 4. Age indeterminate mild compression T8 vertebra. A and P #1 intertrochanteric right femur fracture : S/P fall, orthopedic consulted, plan for surgery. Medically patient is low risk with RCRI, does not have history of CAD, PCI, CABG, heart failure. Patient does not have symptoms of chest pain, palpitations, volume overload before or after fall. Patient does have peripheral vascular disease S/P stenting left lower extremity, 2/6 systolic murmur in mitral area probably mild mitral regurg. No Q waves on EKG, Given her age and comorbidities, she would benefit from echocardiogram and cardiac eval before surgery if possible. Continue gentle hydration, type and crossmatch. Nothing by mouth after midnight. Adequate pain control. Patient's nephew is healthcare proxy.
--- NOTE | 2016-07-22 02:44 | Admission Certification ---
Admission Certification Certification Statement - As attending physician, I certify that at the time of - admission, based on clinical presentation, severity of - symptoms, need for further diagnostic testing and - therapeutic interventions, and risk of adverse outcomes - without in-hospital treatment, in my clinical assessment, - this patient requires an acute hospital stay for a minimum - of two nights or longer. I have also considered psychsocial - factors such as support system, advanced age, financial - issues, cognitive issues, and failed out-patient treatments, - past re-admission history, safety of patient, and lack of - compliance as applicable. Specific rationale supporting this admission is: Right intertrochanteric femur fracture
[2016-07-22 02:45] VITALS: BP 134/60
[2016-07-22 02:54] VITALS: BP 122/66
[2016-07-22 07:09] VITALS: BP 163/69
--- NOTE | 2016-07-22 08:16 | PN- Housestaff ---
See Addendum Subjective Follow-up For: Mechanical fall with right femur fracture Subjective: Patient was seen and examined this morning, no acute distress, vital signs are stable. Patient reported pain 2 out of 10 on the right hip and right lower quadrant. Patient denied nausea, vomiting, chest pain, cough or shortness of breath. Review of Systems Constitutional: Reports: see HPI. Objective Last 24 Hrs of Vital Signs/I&O Vital Signs Date Time Temp Pulse Resp B/P Pulse O2 O2 Flow FiO2 Ox Delivery Rate 07/22 1451 98.2 84 20 190/91 100 / 0709 97.8 86 20 163/69 94 Room Air 07/22 0254 122/66 07/22 0245 134/60 07/21 2253 98.0 89 18 120/0 96 Room Air 07/21 2020 96.5 77 16 154/66 100 Room Air 07/21 1831 96.5 79 16 170/00 99 Room Air 07/21 1557 100 Room Air Intake & Output 07/22 1600 07/22 0800 07/22 0000 Intake Total 600 400 480 Output Total 500 252 50 Balance 100 148 430 Intake, IV 600 400 Intake, Oral 0 480 Number 0 Bowel Movements Output, Urine 500 252 50 Patient 50.802 kg Weight Physical Exam General Appearance: Alert, Cooperative, No Acute Distress Skin: No Rashes, No Breakdown, No Significant Lesion HEENT: Atraumatic, PERRLA, EOMI, Mucous Membr. moist/pink Cardiovascular: Regular Rate, Normal S1, Normal S2, PVC Lungs: Clear to Auscultation, Normal Air Movement Abdomen: Normal Bowel Sounds, Soft, No Tenderness Neurological: Normal Speech Extremities: No Clubbing, No Cyanosis, No Edema, Normal Pulses Assessment/Plan Assessment: Ms. Santos is a 21 year old lady with past medical history of Parkinson disease, severe atherosclerosis all over her body, vitamin B12 deficiency, bilateral macular degeneration, nonspecific history of vascular stent on the left lower limb presented to ED on 07/21/16 with chief complaint of right hip pain after unwitnessed mechanical fracture. Imaging X-ray chest X-ray right hip X-ray right knee X-ray right tibia and fibula X-ray right ankle IMPRESSION: 1. Acute probable comminuted fracture intertrochanteric region proximal right femur with varus angulation and displacement of the fracture fragments. 2. Severe degenerative changes right knee and mild to moderate degenerative changes right hip and right ankle. 3. Ossific/calcific density projecting anterior to the tibial plateau on the lateral radiographs most likely represents soft tissue density projecting anteriorly on the lateral radiograph. Clinical correlation is also recommended. Small to moderate knee effusion. 4. Age indeterminate mild compression T8 vertebra. Problem list #Right intertrochanteric femur fracture with angulation and displacement #Parkinson disease #Osteoarthritis #Right intertrochanteric femur fracture with angulation and displacement -RCRI risk is 0.9% for high [facility] risk -Orthopedic consultation was obtained, patient will have go to the OR around 3 PM this afternoon -Peroperative [facility] clearance was obtained by Dr. Vizcarra -Blood type and crossmatch and blood transfusion consent was obtained in patient 's chart -Keep patient nothing by mouth and continue D5 half-normal IV fluid maintenance 50 mL/h -Obtain EKG and BMP and magnesium postoperatively and replete as needed -Continue adequate pain management Acetaminophen 650 every 6 when necessary Tramadol 50 every 6 when necessary Morphine 2 mg IV every 4 when necessary #Parkinson disease -Continue home dose Sinemet -Continue Lexapro 10 mg every a.m. by mouth #Osteoarthritis -Continue pain management -Continue gabapentin 100 mg 3 times a day by mouth and 300 mg at bedtime DVT prophylaxis heparin subcutaneous CODE STATUS DNR/DNI, Full code for the surgery Diet nothing by mouth Consultation orthopedic surgery, cardiology Problem List: 1. Closed intertrochanteric fracture of right femur Pain Ratin Pain Location: Right hip Pain Goal: Pain 4 or less Pain Plan: Acetaminophen 650 every 6 when necessary Tramadol 50 every 6 when necessary Morphine 2 mg IV every 4 when necessary Tomorrow's Labs & Rationales: CBC, CMP Post operatively CMP, magnesium, EKG
--- NOTE | 2016-07-22 12:24 | NUR ---
PT'S NIECE AND NEPHEW AT BEDSIDE THIS AM. NEPHEW CATHY SOFIA. CURIOUS ABOUT PLAN OF CARE FOR TODAY. CASING RUNNER BERRY IRELAND CALLED TO BEDSIDE TO DISCUSS. ORDER FOR ECHOCARDIOGRAM PENDING. DR. NAVARRO AT BEDSIDE TO ASSESS PT. ECHOCARDIOGRAMS NOT DONE ON WEEKENDS BUT HE AGREED TO COMPLETE IF PT DEFINITELY GOING TO OR. CHACHO SMART DISCUSSED PLAN WITH SURGICAL SHAHRIAR MESSINA, PT WILL HAVE SURGERY TODAY. CHACHO SMART TO NOTIFY DR. NAVARRO. WILL PREPARE PT FOR SURGERY.
--- NOTE | 2016-07-22 13:27 | Cons- Cardiology ---
General Information and HPI Consulting Request Date of Consult: 07/22/16 Requested By: PRASANNA ARVIZU MD Reason for Consult: Preoperative clearance for hip surgery Source of Information: patient, family History of Present Illness: Mrs. Reid is a pleasant 81-year-old female who was admitted to the hospital with chief complaint of right hip pain after an unwitnessed mechanical fall. The patient has evidence of a right intertrochanteric hip fracture and is scheduled for tentative surgery later today. Her past medical history is remarkable for severe osteoarthritis, Parkinson's disease, B12 deficiency and a reported history of peripheral vascular disease with an ill-defined history of prior left lower extremity stent placement. The patient is unable to offer any further information about this. From a cardiac standpoint, the patient's activities are limited. She gets around minimally with a walker at the [facility] [place]. She denies any chest pain, shortness of breath, etc. She denies any known history of cardiac disease in the past. She has never seen a development intern. She denies any prior cardiovascular workup or evaluation. No old records are available. -I discussed the past history with the family. They, also, are not extremely helpful with respect to her past history. Time the patient denies any chest discomfort, shortness of breath, edema, palpitations, loss of consciousness, etc. Per the family, she has had increased frequency of apparent mechanical falls due to gait instability, etc. Allergies/Medications Allergies: Coded Allergies: Influenza Virus Vaccines (NOTED ON W-10 07/21/16) Home Med List: Acetaminophen 500 MG TABLET 2 TAB PO BID PAIN (Reported) Acetaminophen (Acephen) 650 MG SUPP.RECT 1 SUPP CO Q4H PRN PAIN/TEMP>101 ( Reported) Acetaminophen 325 MG CAPSULE 2 CAP PO Q4H PRN PAIN/TEMP>101 (Reported) Aspirin (Ecotrin*) 81 MG TABLET.DR 1 TAB PO DAILY HEART/BLOOD (Reported) Bisacodyl (Dulcolax) 10 MG SUPP.RECT 1 SUP RC DAILY PRN CONSTIPATION ( Reported) Carbidopa/Levodopa (Carbidopa-Levodopa 25-100 Tab) 25 MG-100 MG TABLET 2 TAB PO TID PARKINSONS (Reported) Cyanocobalamin (Vitamin B-12) (Cyanocobalamin Injection) 1,000 MCG/ML VIAL 1 ML IM Q30D SUPPLEMENT (Reported) Diclofenac Sodium (Voltaren) 1 % GEL..GRAM. 4 GM TOP TID NECK (Reported) apply to affected area(s) Docusate Sodium (Colace) 100 MG CAPSULE 1 CAP PO DAILY STOOL SOFTENER ( Reported) Ergocalciferol (Vitamin D2) (Vitamin D2) 50,000 UNIT CAPSULE 1 CAP PO Q30D SUPPLMENT (Reported) Escitalopram Oxalate (Lexapro) 10 MG TABLET 1 TAB PO QAM MENTAL HEALTH ( Reported) Gabapentin (Neurontin) 300 MG CAPSULE 1 CAP PO QHS UNKNOWN (Reported) Gabapentin (Neurontin) 100 MG CAPSULE 1 CAP PO TID UNKNOWN (Reported) Magnesium Hydroxide (Milk Of Magnesia) 400 MG/5 ML ORAL.SUSP 30 ML PO Q3D PRN CONSTIPATION (Reported) Melatonin 3 MG TABLET 1 TAB PO QPM SUPPLEMENT (Reported) Morphine Sulfate (Morphine Sulfate ER) 60 MG TABLET.ER 1 TAB PO Q12H PAIN ( Reported) Na Phos,M-B/Na Phos,Di-Ba (Fleet Enema) 19 GRAM-7 GRAM/118 ML ENEMA 1 E RC DAILY PRN CONSTIPATION (Reported) Naloxone HCl 0.4 MG/ML VIAL 0.4 MG SYDNEE AD PRN OPIOID REDUCED RESP. DEPRESSIO (Reported) Oxycodone HCl 5 MG TABLET 1 TAB PO Q12H PRN PAIN (Reported) Propylene Glycol/Peg 400/Pf (Systane 0.3-0.4% Eye Drops) 0.3 %-0.4 % DROPERETTE 1 DROP OPH DAILY BOTH EYES (Reported) Sennosides (Senna) 8.6 MG TABLET 1 TAB PO QPM GI (Reported) Tizanidine HCl (Unknown Strength) TABLET (Unknown Dose) PO AD MUSCLE RELAXER (Reported) Current Medications: Current Medications Sig/Carisa Start time Last Medication Dose Route Stop Time Status Admin Acetaminophen 650 MG Q6P PRN 07/21 2114 AC PO Acetaminophen 1,000 MG Q6P PRN 07/21 2115 AC 07/22 IV 0931 Acetaminophen 0 .STK-MED ONE 07/22 1847 DC IV Acetaminophen 1,000 MG ONCE ONE 07/21 184 DC 07/21 N/A 1 UNIT IV 07/21 1859 1853 Carbidopa/Levodopa 2 TAB TID 07/21 2200 AC 07/21 PO 2241 Escitalopram Oxalate 10 MG QAM 07/22 1000 AC PO Gabapentin 300 MG AT BEDTIME 07/21 220 AC 07/21 PO 2241 Gabapentin 100 MG TID 07/21 2200 AC 07/21 PO 2241 Heparin Sodium 5,000 UNIT Q8 07/22 0600 AC 07/22 (Porcine) SC 0523 Hydromorphone HCl 1 MG ONCE ONE 07/21 1715 DC 07/21 IV 07/21 1716 1712 Hydromorphone HCl 0 .STK-MED ONE 07/21 1711 DC .ROUTE Hydromorphone HCl 0 .STK-MED ONE 07/21 1555 DC .ROUTE Hydromorphone HCl 0.6 MG ONCE ONE 07/21 1545 DC 07/21 IV 07/21 1546 1556 Morphine Sulfate 2 MG Q6P PRN 07/21 2115 AC 07/22 IV 1324 Morphine Sulfate 0 .STK-MED ONE 07/21 1848 DC .ROUTE Morphine Sulfate 4 MG ONCE ONE 07/21 1845 DC 07/21 IV 07/21 1846 1853 Sodium Chloride 1,000 ML Q10H 07/22 0045 AC 07/22 IV 1319 Past History Travel History Traveled to [place] past 21 day No Medical History Blood Transfusion Hx: No Neurological: Parkinson's disease EENT: macular degeneration Cardiovascular: NONE, PVD Respiratory: NONE Gastrointestinal: NONE Hepatic: NONE Renal: NONE Musculoskeletal: NONE Psychiatric: anxiety Endocrine: NONE Blood Disorders: NONE Cancer(s): NONE Surgical History Surgical History: Left vascular stent (not specific) Psychosocial History Where [facility] You Live? [facility] Services at Home: Nursing Smoking Status: Never Smoked ETOH Use: denies use Illicit Drug Use: denies illicit drug use Functional Ability ADLs Needs Assist: dressing, eating, toileting, bathing. Exam & Diagnostic Data Vital Signs and I&O Vital Signs Date Time Temp Pulse Resp B/P Pulse O2 O2 Flow FiO2 Ox Delivery Rate 07/22 07 97.8 86 20 163/69 94 Room Air 07/22 0254 122/66 07/22 0245 134/60 07/21 2253 98.0 89 18 120/0 96 Room Air 07/22 2019 96.5 77 16 154/66 100 Room Air 07/21 1831 96.5 79 16 170/00 99 Room Air 07/21 1557 100 Room Air 07/21 1531 96.0 76 16 158/85 100 Room Air Intake & Output 07/22 1600 07/22 0800 07/22 0000 07/21 1600 07/21 0800 07/21 0000 Intake Total 400 480 0 Output Total 252 50 Balance 148 430 0 Intake, IV 400 Intake, Oral 480 0 Output, Urine 252 50 Patient 112 lb 112 lb Weight Physical Exam: General Appearance Alert, Oriented X3, Cooperative, No Acute Distress Skin normal HEENT normal Neck Supple, No JVD, carotids normal bilaterally with no bruits Lymphatic no cervical lymphadenopathy Cardiovascular Regular Rate, Normal S1, Normal S2, 1 to 2/6 systolic murmur mitral area Lungs Clear to Auscultation and percussion bilaterally Abdomen Normal Bowel Sounds, Soft, No Tenderness Neurological nonfocal Extremities No Clubbing, No Cyanosis, No Edema, Normal Pulses Labs/Chiki Results: Laboratory Tests 07/21 1549 Chemistry Sodium (137 - 145 mmol/L) 139 Potassium (3.5 - 5.1 mmol/L) 4.3 Chloride (98 - 107 mmol/L) 100 Carbon Dioxide (22 - 30 mmol/L) 28 Anion Gap (5 - 16) 11 BUN (7 - 17 mg/dL) 20 H Creatinine (0.5 - 1.0 mg/dL) 0.7 Estimated GFR (>60 ml/min) > 60 BUN/Creatinine Ratio (7 - 25 %) 28.6 H Glucose (65 - 99 mg/dL) 82 Calcium (8.4 - 10.2 mg/dL) 9.2 Total Bilirubin (0.2 - 1.3 mg/dL) 0.6 AST (14 - 36 U/L) 15 ALT (9 - 52 U/L) 17 Alkaline Phosphatase (<127 U/L) 77 Total Protein (6.3 - 8.2 g/dL) 6.5 Albumin (3.5 - 5.0 g/dL) 3.7 Globulin (1.9 - 4.2 gm/dL) 2.8 Albumin/Globulin Ratio (1.1 - 2.2 %) 1.3 Coagulation PT (9.4 - 12.5 SEC) 11.8 INR (0.90 - 1.19) 1.13 APTT (25 - 37 SEC) 33 Hematology CBC w Diff NO MAN DIFF REQ WBC (4.8 - 10.8 /CUMM) 8.9 RBC (4.20 - 5.40 /CUMM) 3.57 L Hgb (12.0 - 16.0 G/DL) 10.9 L Hct (37 - 47 %) 32.3 L MCV (81.0 - 99.0 FL) 90.7 MCH (27.0 - 31.0 PG) 30.5 RDW (11.5 - 14.5 %) 14.2 Plt Count (130 - 400 /CUMM) 243 MPV (7.4 - 10.4 FL) 9.6 Gran % (42.2 - 75.2 %) 68.2 Lymphocytes % (20.5 - 51.1 %) 16.3 L Monocytes % (1.7 - 9.3 %) 13.5 H Eosinophils % (0 - 5 %) 1.4 Basophils % (0.0 - 2.0 %) 0.6 Absolute Granulocytes (1.4 - 6.5 /CUMM) 6.0 Absolute Lymphocytes (1.2 - 3.4 /CUMM) 1.4 Absolute Monocytes (0.10 - 0.60 /CUMM) 1.2 H Absolute Eosinophils (0.0 - 0.7 /CUMM) 0.1 Absolute Basophils (0.0 - 0.2 /CUMM) 0.1 PUBS MCHC (33.0 - 37.0 G/DL) 33.6 Diagnostic Data EKG Results Normal sinus rhythm with nonspecific lateral ST-T changes CXR Results CHEST: Patient is rotated limiting the evaluation. Visualized lungs are clear. No obvious pneumothorax. Age indeterminate mild decrease T12 vertebral body height. Assessment/Plan Assessment/Plan Assessment: 1. Intertrochanteric hip fracture right side post mechanical fall-the patient had an apparent mechanical fall and denies any history of dizziness or loss of consciousness. Her ECG shows minimal ST T-wave changes in the lateral leads. Although her activities are very limited, she adamantly denies any known history of cardiac disease, symptoms, etc. She has never had a complete cardiac evaluation however. She does report a history of peripheral vascular disease with a prior stent placement although no information is available about this. 2. Mildly abnormal EKG 3. Heart murmur 4. Ill-defined history of peripheral arterial disease and prior stent placement 5. Parkinson's disease 6. Mild normocytic anemia 7. Severe osteoarthritis Recommendations: -An echocardiaogram was performed at the bedside. The echo shows borderline left ventricular hypertrophy with a normal ejection fraction and no obvious wall motion of normalities. The patient has minimal to mild aortic stenosis with thickening and calcification of the mitral leaflets and mild mitral insufficiency with left atrial enlargement. Mild tricuspid insufficiency is also present. There is no significant pulmonary hypertension. -In view of the fact that the patient has no known cardiac history, no major ECG abnormalities, no history of heart failure, and an echocardiogram with normal left ventricular function and no significant valvular disease, I believe the patient can proceed with orthopedic intervention today. Clearly, the patient's risk for any surgical procedure is elevated somewhat due to her age, limited activity levels, reported underlying vascular disease, etc. I discussed the situation at length with the patient and her family. They agree that the most prudent plan is to proceed with surgical repair of the hip fracture. -Please check an ECG postoperatively. -The patient does have some atrial and ventricular ectopy on examination and on monitoring during the echo cardiac gram. I also pointed out that there is a possibility of perioperative arrhythmias such as atrial fibrillation, etc. -please make sure that the patient's potassium, magnesium, etc. are monitored and repleted as necessary postoperatively. Consult Acknowledgment - Thank you for your consult request.
[2016-07-22 14:51] VITALS: BP 190/91
--- NOTE | 2016-07-22 15:23 | Cons- Orthopedic ---
General Information and HPI Consulting Request Date of Consult: 07/22/16 Requested By: PRASANNA ARVIZU MD History of Present Illness: PATIENT 81 Y/O HAD MECHANICAL FALL AT HOME SUFFERED A SUBTROCHANTERIC FRACTURE RIGHT HIP. NORMALLY AMBULATES AT HOME. Allergies/Medications Allergies: Coded Allergies: Influenza Virus Vaccines (NOTED ON W-10 07/21/16) Home Med List: Acetaminophen 500 MG TABLET 2 TAB PO BID PAIN (Reported) Acetaminophen (Acephen) 650 MG SUPP.RECT 1 SUPP AK Q4H PRN PAIN/TEMP>101 ( Reported) Acetaminophen 325 MG CAPSULE 2 CAP PO Q4H PRN PAIN/TEMP>101 (Reported) Aspirin (Ecotrin*) 81 MG TABLET.DR 1 TAB PO DAILY HEART/BLOOD (Reported) Bisacodyl (Dulcolax) 10 MG SUPP.RECT 1 SUP RC DAILY PRN CONSTIPATION ( Reported) Carbidopa/Levodopa (Carbidopa-Levodopa 25-100 Tab) 25 MG-100 MG TABLET 2 TAB PO TID PARKINSONS (Reported) Cyanocobalamin (Vitamin B-12) (Cyanocobalamin Injection) 1,000 MCG/ML VIAL 1 ML IM Q30D SUPPLEMENT (Reported) Diclofenac Sodium (Voltaren) 1 % GEL..GRAM. 4 GM TOP TID NECK (Reported) apply to affected area(s) Docusate Sodium (Colace) 100 MG CAPSULE 1 CAP PO DAILY STOOL SOFTENER ( Reported) Ergocalciferol (Vitamin D2) (Vitamin D2) 50,000 UNIT CAPSULE 1 CAP PO Q30D SUPPLMENT (Reported) Escitalopram Oxalate (Lexapro) 10 MG TABLET 1 TAB PO QAM MENTAL HEALTH ( Reported) Gabapentin (Neurontin) 300 MG CAPSULE 1 CAP PO QHS UNKNOWN (Reported) Gabapentin (Neurontin) 100 MG CAPSULE 1 CAP PO TID UNKNOWN (Reported) Magnesium Hydroxide (Milk Of Magnesia) 400 MG/5 ML ORAL.SUSP 30 ML PO Q3D PRN CONSTIPATION (Reported) Melatonin 3 MG TABLET 1 TAB PO QPM SUPPLEMENT (Reported) Morphine Sulfate (Morphine Sulfate ER) 60 MG TABLET.ER 1 TAB PO Q12H PAIN ( Reported) Na Phos,M-B/Na Phos,Di-Ba (Fleet Enema) 19 GRAM-7 GRAM/118 ML ENEMA 1 E RC DAILY PRN CONSTIPATION (Reported) Naloxone HCl 0.4 MG/ML VIAL 0.4 MG SYDNEE AD PRN OPIOID REDUCED RESP. DEPRESSIO (Reported) Oxycodone HCl 5 MG TABLET 1 TAB PO Q12H PRN PAIN (Reported) Propylene Glycol/Peg 400/Pf (Systane 0.3-0.4% Eye Drops) 0.3 %-0.4 % DROPERETTE 1 DROP OPH DAILY BOTH EYES (Reported) Sennosides (Senna) 8.6 MG TABLET 1 TAB PO QPM GI (Reported) Tizanidine HCl (Unknown Strength) TABLET (Unknown Dose) PO AD MUSCLE RELAXER (Reported) Past History Medical History Blood Transfusion Hx: No Neurological: Parkinson's disease EENT: macular degeneration Cardiovascular: NONE, PVD Respiratory: NONE Gastrointestinal: NONE Hepatic: NONE Renal: NONE Musculoskeletal: NONE Psychiatric: anxiety Endocrine: NONE Blood Disorders: NONE Cancer(s): NONE Surgical History Pertinent Surgical History: Left vascular stent (not specific) Psychosocial History [facility] You [facility] Nursing Smoking Status: Never Smoked ETOH Use: denies use Illicit Drug Use: denies illicit drug use Functional Ability ADLs Needs Assist: dressing, eating, toileting, bathing. Exam & Diagnostic Data Vital Signs and I&O Vital Signs Date Time Temp Pulse Resp B/P Pulse O2 O2 Flow FiO2 Ox Delivery Rate 07/22 1451 98.2 84 20 190/91 100 07/22 0709 97.8 86 20 163/69 94 Room Air 07/22 0254 122/66 04 0245 134/60 07/21 2253 98.0 89 18 120/0 96 Room Air 07/21 2020 96.5 77 16 154/66 100 Room Air 07/21 1831 96.5 79 16 170/00 99 Room Air 07/21 1557 100 Room Air 07/21 1531 96.0 76 16 158/85 100 Room Air Intake & Output 07/22 1600 07/22 0800 07/22 0000 07/21 1600 07/21 0800 07/21 0000 Intake Total 600 400 480 0 Output Total 500 252 50 Balance 100 148 430 0 Intake, IV 600 400 Intake, Oral 0 480 0 Number 0 Bowel Movements Output, Urine 500 252 50 Patient 112 lb 112 lb Weight Physical Exam: PAIN RIGHT HIP NEURO INTACT CLOSED FRACTURE Assessment/Plan Assessment/Plan PATIENT HAS RIGHT FEMUR FRACTURE SPOKE WITH FAMILY WHO AGREES WITH RODDING THE RIGHT FEMUR CONSENT SIGNED BY THE PATIENT. TO SURGERY TODAY PATIENT HAS BEEN CLEARED BY CARDIOLOGY Consult Acknowledgment - Thank you for your consult request. Attending MD Review Statement Attending Statement Attending MD Statement: examined this patient
--- NOTE | 2016-07-22 15:44 | NUR ---
UPON CHECKING PT'S BP BEFORE GOING TO OR, BP 188/88. HR 88. CONVERTING TECHNICIAN AWARE, OR AWARE. PT OKAY TO GO TO OR. PT VERY ANXIOUS AND IN PAIN. EVENING RN AWARE.
--- NOTE | 2016-07-22 18:22 | Operative Report ---
Operative/Inv Procedure Report Surgery Date: 07/22/16 Name of Procedure: Right femoral intramedullary rodding Pre-Operative Diagnosis: Right subtrochanteric femur fracture Post-Operative Diagnosis: Right subtrochanteric femur fracture Estimated Blood Loss: 50ml to 100ml Surgeon/Motorized Squad Lieutenant: adrianne victor Anesthesia: general endotracheal tube Operative/Procedure Note Note: Patient was brought to the operating room and put to sleep all in her bed with her general anesthesia. She did receive 2 g of Kefzol antibiotics. She was gently transferred to the fracture table and placed in longitudinal traction. A closed reduction was carried out under fluoroscopic control. The right hip and leg were then prepped and draped in usual sterile fashion. A 3 cm incision was made above the greater trochanter and a guidewire was placed into the proximal femur. Proximal reaming was carried out. I then used an intramedullary reduction device to go down the canal and reduce the fracture. There was still some offset to the fracture site made a small incision and put a clamp over the fracture reduced anatomically. We then placed the appropriate guidewire down to the knee went ahead and reamed up to 11 for a 10 nail. The nail was then placed appropriate reaming was then carried out into the femoral head and neck and the appropriate lag screw placed. Distal locking was carried out in an anatomic pictures were taken using fluoroscopy showing that the nail was the appropriate length and the fixation was perfect. Thorough irrigation was carried out at the end of the procedure and the wounds were closed in a layered fashion and a dry sterile dressings were applied she was sent back to recovery room in stable condition end of dictation we didn't do an appropriate timeout before the procedure indicating that the right lower extremity was indeed the operative extremity.
--- NOTE | 2016-07-22 20:02 | RADIOLOGY REPORT ---
EXAMINATION: XR HIP, RIGHT CLINICAL INFORMATION: Femoral fracture fixation. COMPARISON: Radiographs of the right hip from 07/21/2016. TECHNIQUE: Intraoperative fluoroscopic imaging of the right hip was utilized and multiple spot fluoroscopy images submitted into the electronic picture archive. FLUOROSCOPY TIME: 1 minute, 2 seconds. FINDINGS: There is a comminuted, spiral fracture through the intertrochanteric and subtrochanteric regions of the proximal femur with mild medial displacement of the lesser trochanteric fragment. Multiple images were acquired during reduction and fixation of the femoral fracture. The patient underwent placement of a long femoral intramedullary nail and dynamic neck screw. The tip of the femoral medullary nail is located in the anterior aspect of the distal femoral metaphysis. At the right hip, there is [id number] joint space narrowing and osteophyte formation. There is tricompartmental osteoarthritis of the knee. There is extensive atherosclerotic peripheral vascular calcification. IMPRESSION: Intraoperative fluoroscopic imaging of the right hip/femur was utilized during open reduction and internal fixation of the proximal femoral fracture.
[2016-07-22 20:13] VITALS: BP 124/80
--- NOTE | 2016-07-22 20:14 | NUR ---
PT ARRIVED BACK TO FLOOR FROM PACU AT 1999. PT TRANSFERRED OVER TO [facility] BED. VSS. PAIN 11/27, MEDICATED WITH PRN MORPHINE AT THIS TIME. MORAES IN PLACE. PT NO LONGER NPO. ORAL CARE PROVIDED. DRY DRESSING TO R HIP CDI. +PULSES, +CMS. WILL CONTINUE TO MONITOR.
[2016-07-22 22:08] VITALS: BP 138/0
[2016-07-23 07:15] VITALS: BP 150/00
[2016-07-23 08:18] LABS: ABSOLUTE BASOPHIL COUNT 0 /CUMM (0.0-0.2); ABSOLUTE EOSINOPHIL COUNT 0 /CUMM (0.0-0.7); ABSOLUTE GRANULOCYTE CT 5.2 /CUMM (1.4-6.5); ABSOLUTE LYMPH COUNT 0.8 /CUMM (1.2-3.4); ABSOLUTE MONOCYTE COUNT 1.1 /CUMM (0.10-0.60); BASOPHIL % 0.4 % (0.0-2.0); EOSINOPHIL % 0.1 % (0-5); GRANULOCYTE % 72.6 % (42.2-75.2); MEAN CORPUSCULAR HGB 30.8 PG (27.0-31.0); MEAN CORPUSCULAR HGB CONC 33.4 G/DL (33.0-37.0); MEAN CORPUSCULAR VOLUME 92.4 FL (81.0-99.0); MEAN PLATELET VOLUME 9.8 FL (7.4-10.4); PLATELET COUNT 162 /CUMM (130-400); RBC DISTRIBUTION WIDTH 14.1 % (11.5-14.5); WHITE BLOOD CELL COUNT 7.2 /CUMM (4.8-10.8)
--- NOTE | 2016-07-23 08:43 | PN- Orthopedic ---
Subjective Subjective: PATIENT APPEARS COMFORTABLE TODAY MILD PAIN Objective Vital Signs and I&Os Vital Signs Date Time Temp Pulse Resp B/P Pulse O2 O2 Flow FiO2 Ox Delivery Rate 07/23 714 97.7 87 20 150/00 94 Room Air 07/22 2213 97.9 90 20 94 Room Air 07/22 2208 138/0 07/22 2012 97.8 90 18 94 Room Air 07/22 1451 98.2 84 20 190/91 100 Intake & Output 07/23 1600 07/23 0807/23 0000 07/22 1600 07/22 0800 07/22 0000 Intake Total 840 600 400 480 Output Total 275 100 500 252 50 Balance -275 740 100 148 430 Intake, IV 600 600 400 Intake, Oral 240 0 480 Number 0 Bowel Movements Output, Urine 275 100 500 252 50 Patient 112 lb Weight Physical Exam: ON PHYSICAL EXAM DRESSING CLEAN INTACT NEURO INTACT EXCELLENT HIP rom Assessment/Plan Assessment/Plan DOING WELL POST OP oob wbat RIGHT LOWER EXTREMITY PUSH REGULAR DIET AND ENSURE dc TO [facility] WHEN READY Core Measures/Miscellaneous Venous Thromboembolism VTE Risk Factors: Acute medical illness (RIGHT HIP SURGERY) VTE Contraindications: Abn Clotting Times (NONE) VTE Diagnosis: No VTE Type: NONE VTE Confirmed by (Test): NONE Beta Brandy Is Beta Brandy a Home Med? No Antibiotics Is Patient on Antibiotics? Yes Attending MD Review Statement Attending Statement Attending MD Statement: examined this patient
[2016-07-23 09:35] LABS: RED BLOOD CELL CT 2.06 /CUMM (4.20-5.40)
--- NOTE | 2016-07-23 09:45 | NUR ---
UPON ENTRY INTO ROOM NURSING CAME IN AND INFORMED PT THAT LAB VALUES CAME BACK: H&H 6 AND 19. NURSING STATING SHE IS GOING TO CONTACT MD AND INTERNS TO DISCUSS NEXT COURSE OF INTERVENTION REGARDING LEVELS. PT WILL HOLD UNTIL TOMORROW OR WHEN LAB VALUES INCREASE.
--- NOTE | 2016-07-23 10:06 | PN- Housestaff ---
See Addendum Subjective Follow-up For: R. intertrochanteric femur fracture s/p ORIF parkinsons disease Subjective: Saw pt at bedside this AM. She has low H/H so we will transfuse one unit. Consent in chart. Pt denies any SOB/CP. Findings communicated with surgery. She states that she has some pain in her r. leg when she moves. She also endorses some anxiety but that it is better than yesterday. Review of Systems Constitutional: Reports: weakness. Denies: chills, fever. EENTM: Reports: no symptoms. Cardiovascular: Denies: chest pain, palpitations, syncope. Respiratory: Denies: cough, short of breath, wheezing. Gastrointestinal: Denies: abdominal pain, constipation, diarrhea. Genitourinary: Reports: no symptoms. Musculoskeletal: Reports: back pain, muscle pain, muscle stiffness. Objective Last 24 Hrs of Vital Signs/I&O Vital Signs Date Time Temp Pulse Resp B/P Pulse O2 O2 Flow FiO2 Ox Delivery Rate 07/23 0715 97.7 87 20 150/00 94 Room Air 07/22 221 97.9 90 20 94 Room Air 07/22 2208 138/0 07/22 2012 97.8 90 18 94 Room Air 07/22 1451 98.2 84 20 190/91 100 Intake & Output 07/23 1600 07/23 0800 07/23 0000 Intake Total 840 Output Total 275 100 Balance -275 740 Intake, IV 600 Intake, Oral 240 Output, Urine 275 100 Physical Exam General Appearance: Alert, No Acute Distress Skin: No Rashes, No Significant Lesion HEENT: Atraumatic, PERRLA, EOMI Neck: Supple Cardiovascular: Regular Rate, Normal S1, Normal S2, No Murmurs Lungs: Clear to Auscultation Abdomen: Normal Bowel Sounds, Soft, No Tenderness Neurological: Normal Speech Extremities: has bandage on lateral side of r. leg. non bloody. Current Medications: Current Medications Sig/Carisa Start time Last Medication Dose Route Stop Time Status Admin Acetaminophen 650 MG Q6P PRN 07/22 1830 AC PO Acetaminophen 1,000 MG Q6P PRN 07/22 1830 AC 07/23 IV 0645 Acetaminophen 650 MG Q6P PRN 07/21 2114 DC PO Acetaminophen 1,000 MG Q6P PRN 07/21 2114 DC 07/22 IV 0931 Carbidopa/Levodopa 2 TAB TID 07/22 2200 AC 07/23 PO 0823 Carbidopa/Levodopa 2 TAB TID 07/21 2200 DC 07/21 PO 2241 Cefazolin Sodium 1,000 MG IQ8 07/23 0000 DC 07/23 IV 07/23 0801 0824 Docusate Sodium 100 MG BID 07/22 2200 AC 07/23 PO 0823 Enoxaparin Sodium 40 MG DAILY 07/23 1000 AC 07/23 SC 0824 Escitalopram Oxalate 10 MG QAM 07/23 1000 AC 07/23 PO 0823 Escitalopram Oxalate 10 MG QAM 07/22 1000 DC PO Fentanyl Citrate 300 MCG .STK-MED ONE 07/22 1518 DC IM 07/22 1519 Gabapentin 300 MG AT BEDTIME 07/22 2200 AC 07/22 PO 2109 Gabapentin 100 MG TID 07/22 2200 AC 07/23 PO 0839 Gabapentin 300 MG AT BEDTIME 07/21 2200 DC 07/21 PO 2241 Gabapentin 100 MG TID 07/21 2200 DC 07/21 PO 2241 Heparin Sodium 5,000 UNIT Q8 07/22 0600 DC 07/22 (Porcine) SC 0523 Magnesium Sulfate 1 GM ONCE ONE 07/22 2100 DC 07/22 Dextrose/Water 100 ML IV 07/23 0059 2217 Midazolam HCl 2 MG .STK-MED ONE 07/22 1518 DC IM 07/22 1519 Morphine Sulfate 2 MG Q6P PRN 07/22 1830 AC 07/23 IV 0425 Morphine Sulfate 2 MG Q6P PRN 07/21 2115 DC 07/22 IV 1324 Ondansetron HCl 4 MG .STK-MED ONE 07/22 1519 DC IM 07/22 1520 Patient Medication 1 UNIT ONE NR 07/22 1845 DC Teaching ED 07/22 1900 Sodium Chloride 1,000 ML Q13H 07/22 1830 AC 07/23 IV 0824 Sodium Chloride 1,000 ML Q10H 07/22 0045 DC 07/22 IV 1319 Last 24 Hrs of Lab/Chiki Results Last 24 Hrs of Labs/Mics: Laboratory Tests 07/23/16 0630: Anion Gap 7, Estimated GFR > 60, BUN/Creatinine Ratio 20.0, CBC w Diff NO MAN DIFF REQ, RBC 2.06 L, MCV 92.4, MCH 30.8, RDW 14.1, MPV 9.8, Gran % 72.6, Lymphocytes % 11.5 L, Monocytes % 15.4 H, Eosinophils % 0.1, Basophils % 0.4, Absolute Granulocytes 5.2, Absolute Lymphocytes 0.8 L, Absolute Monocytes 1.1 H, Absolute Eosinophils 0, Absolute Basophils 0, PUBS MCHC 33.4 07/22/161953: Anion Gap 13, Estimated GFR > 60, BUN/Creatinine Ratio 21.7, Magnesium 1.3 L Assessment/Plan Assessment: Ms. Santos is a 21 year old lady with past medical history of Parkinson disease, severe atherosclerosis all over her body, vitamin B12 deficiency, bilateral macular degeneration, nonspecific history of vascular stent on the left lower limb presented to ED on 07/21/16 with chief complaint of right hip pain after unwitnessed mechanical fracture. Imaging X-ray chest X-ray right hip X-ray right knee X-ray right tibia and fibula X-ray right ankle IMPRESSION: 1. Acute probable comminuted fracture intertrochanteric region proximal right femur with varus angulation and displacement of the fracture fragments. 2. Severe degenerative changes right knee and mild to moderate degenerative changes right hip and right ankle. 3. Ossific/calcific density projecting anterior to the tibial plateau on the lateral radiographs most likely represents soft tissue density projecting anteriorly on the lateral radiograph. Clinical correlation is also recommended. Small to moderate knee effusion. 4. Age indeterminate mild compression T8 vertebra. Problem list #Right intertrochanteric femur fracture with angulation and displacement #Parkinson disease #Osteoarthritis #Right intertrochanteric femur fracture with angulation and displacement: Went for ORIF 07/22 - h/h low at 6.3 today. Tranfused one unit -Blood type and crossmatch and blood transfusion consent was obtained in patient 's chart -Continue adequate pain management Acetaminophen 650 every 6 when necessary Tramadol 50 every 6 when necessary Morphine 2 mg IV every 4 when necessary #Parkinson disease -Continue home dose Sinemet -Continue Lexapro 10 mg every a.m. by mouth #Osteoarthritis -Continue pain management -Continue gabapentin 100 mg 3 times a day by mouth and 300 mg at bedtime DVT prophylaxis heparin subcutaneous CODE STATUS DNR/DNI, Full code for the surgery Diet nothing by mouth Consultation orthopedic surgery, cardiology Problem List: 1. Closed intertrochanteric fracture of right femur Pain Ratin Pain Location: r. leg Pain Goal: Remain pain free Pain Plan: current reg Tomorrow's Labs & Rationales: cbc bep DVT/Prophylaxis: pharmacological
[2016-07-23 14:51] VITALS: BP 122/58
--- NOTE | 2016-07-23 15:38 | PN- Cardiology ---
Subjective Subjective: The patient is doing well day one post hip surgery. She has no new specific complaints. No obvious new cardiac issues. Objective Vital Signs and I&Os Vital Signs Date Time Temp Pulse Resp B/P Pulse O2 O2 Flow FiO2 Ox Delivery Rate 07/23 1451 97.2 88 20 122/58 100 07/23 0715 97.7 87 20 150/00 94 Room Air 07/22 221 97.9 90 20 94 Room Air 07/22 2208 138/0 07/22 2012 97.8 90 18 94 Room Air Intake & Output 07/23 1600 07/23 0807/23 0000 07/22 1600 07/22 0807/22 0000 Intake Total 700 840 600 400 480 Output Total 400 275 100 500 252 50 Balance -400 425 740 100 148 430 Intake, IV 600 600 600 400 Intake, Oral 100 240 0 480 Number 0 0 Bowel Movements Output, Urine 400 275 100 500 252 50 Patient 112 lb Weight Physical Exam: General Appearance Alert, Oriented X3, Cooperative, No Acute Distress Skin normal HEENT normal Neck Supple, No JVD, carotids normal bilaterally with no bruits Lymphatic no cervical lymphadenopathy Cardiovascular Regular Rate, Normal S1, Normal S2, 1 to 2/6 systolic murmur mitral area Lungs Clear to Auscultation and percussion bilaterally Abdomen Normal Bowel Sounds, Soft, No Tenderness Neurological nonfocal Extremities No Clubbing, No Cyanosis, No Edema, Normal Pulses Current Medications: Current Medications Sig/Carisa Start time Last Medication Dose Route Stop Time Status Admin Acetaminophen 650 MG Q6P PRN 07/22 1830 AC 07/23 PO 1530 Acetaminophen 1,000 MG Q6P PRN 07/22 1830 AC 07/23 IV 0645 Acetaminophen 650 MG Q6P PRN 07/21 2114 DC PO Acetaminophen 1,000 MG Q6P PRN 07/21 211 DC 07/22 IV 0931 Carbidopa/Levodopa 2 TAB TID 07/22 2199 AC 07/23 PO 1530 Carbidopa/Levodopa 2 TAB TID 07/21 2199 DC 07/21 PO 2241 Cefazolin Sodium 1,000 MG IQ8 07/23 0000 DC 07/23 IV 07/23 0801 0824 Docusate Sodium 100 MG BID 07/22 2199 AC 07/23 PO 0823 Enoxaparin Sodium 40 MG DAILY 07/23 1000 AC 03/05 SC 0824 Escitalopram Oxalate 10 MG QAM 07/23 1000 AC 07/23 PO 0823 Escitalopram Oxalate 10 MG QAM 07/22 1000 DC PO Gabapentin 300 MG AT BEDTIME 07/22 2200 AC 07/22 PO 2109 Gabapentin 100 MG TID 07/22 2200 AC 07/23 PO 1530 Gabapentin 300 MG AT BEDTIME 07/21 2200 DC 07/21 PO 2241 Gabapentin 100 MG TID 07/21 2200 DC 07/21 PO 2241 Heparin Sodium 5,000 UNIT Q8 07/22 0600 DC 07/22 (Porcine) SC 0523 Magnesium Sulfate 1 GM ONCE ONE 07/22 2100 DC 07/22 Dextrose/Water 100 ML IV 07/23 0059 2217 Morphine Sulfate 2 MG Q6P PRN 07/22 1830 AC 07/23 IV 1242 Morphine Sulfate 2 MG Q6P PRN 07/21 2115 DC 07/22 IV 1324 Patient Medication 1 UNIT ONE NR 07/22 1845 DC Teaching ED 07/22 1900 Sodium Chloride 1,000 ML Q13H 07/22 1830 AC 07/23 IV 0824 Sodium Chloride 1,000 ML Q10H 07/22 0045 DC 07/22 IV 1319 Results Last 48 Hrs of Labs/Mics: Laboratory Tests 07/23/16 0630: Anion Gap 7, Estimated GFR > 60, BUN/Creatinine Ratio 20.0, CBC w Diff NO MAN DIFF REQ, RBC 2.06 L, MCV 92.4, MCH 30.8, RDW 14.1, MPV 9.8, Gran % 72.6, Lymphocytes % 11.5 L, Monocytes % 15.4 H, Eosinophils % 0.1, Basophils % 0.4, Absolute Granulocytes 5.2, Absolute Lymphocytes 0.8 L, Absolute Monocytes 1.1 H, Absolute Eosinophils 0, Absolute Basophils 0, PUBS MCHC 33.4 07/22/16 1954: Anion Gap 13, Estimated GFR > 60, BUN/Creatinine Ratio 21.7, Magnesium 1.3 L 07/21/16 1549: Anion Gap 11, Estimated GFR > 60, BUN/Creatinine Ratio 28.6 H, Glucose 82, Calcium 9.2, Total Bilirubin 0.6, AST 15, ALT 17, Alkaline Phosphatase 77, Total Protein 6.5, Albumin 3.7, Globulin 2.8, Albumin/Globulin Ratio 1.3, PT 11.8, INR 1.13, APTT 33, CBC w Diff NO MAN DIFF REQ, RBC 3.57 L, MCV 90.7, MCH 30.5, RDW 14.2, MPV 9.6, Gran % 68.2, Lymphocytes % 16.3 L, Monocytes % 13.5 H, Eosinophils % 1.4, Basophils % 0.6, Absolute Granulocytes 6.0, Absolute Lymphocytes 1.4, Absolute Monocytes 1.2 H, Absolute Eosinophils 0.1, Absolute Basophils 0.1, PUBS MCHC 33.6 Microbiology 07/21 2024 URINE ROUT: Urine Culture - COMP Assessment/Plan Assessment/Plan Assessment: 1. Intertrochanteric hip fracture right side post mechanical fall, day #1 postop 2. Mildly abnormal EKG 3. Heart murmur 4. Ill-defined history of peripheral arterial disease and prior stent placement 5. Parkinson's disease 6. Mild normocytic anemia 7. Severe osteoarthritis Recommendations: -Continue current medical management -Continue as per the orthopedic service -Full echocardiogram pending, further input from cardiology after the echo is reviewed Continue telemetry? Yes
--- NOTE | 2016-07-23 18:43 | NUR ---
PT CONFUSED, STATING SHES AT HER "HOME IN [place], [place]" ABLE TO ANSWER TO DATE CORRECTLY, PULLING OFF HIP DRESSING, THIS NURSE RE-DRESSED HIP WITH XEROFORM AND FLUFFS F/B ABD PADS, PULLING AT MORAES AT TIMES, REDIRECTED, ASSISTED PT ONTO BEDPAN, PT HAD BM X 2. ASKING TO GET OOB AND "GO UPSTAIRS". WHEN THIS NURSE WAS FEEDING PT, PT STATED "MOM, DO YOU WANT SOME CHOCOLATE CAKE?" INFORMED PT THAT HER MOM WAS NOT IN THE ROOM, "YES SHE IS I THOUGHT SHE WAS OVER THERE", AGITATED AT TIMES, WHEN REDRESSING HIP. S/P BLOOD INFUSION, VSS, CALL PLACED TO [facility] TO COME EVAL PT AT THIS TIME, NO NEW ORDERS, WILL CONTINUE TO MONITOR.
--- NOTE | 2016-07-23 20:04 | ECHOCARDIOGRAM REPORT ---
ARMIDA SUTHERLAND Age: 81 : 1935 Gender: F Exam Date: 07/23/2016 11:48 Exam Location: [facility] Ht (in): 62 Wt (lb): 112 BSA: 1.49 BP: 150 / 0 Ordering Physician: RIANA GARRISON MD Referring Physician: Kiana Vizcarra MD Technologist: Alysia Gentile [facility] Room Number: 233 Indications: PERICARDIAL CONDITIONS Rhythm: Sinus Technical Quality: Fair, Technically difficult study FINDINGS Left Ventricle Normal size left ventricle. No obvious regional wall motion abnormalities. Normal left ventricular ejection fraction estimated at 65-70%. Right Ventricle Right ventricle not well visualized, grossly normal. Right Atrium Normal right atrial size. Left Atrium Left atrial size at the upper limits of normal. Mitral Valve Mitral valve thickened. Mild mitral regurgitation. Aortic Valve Trileaflet aortic valve. Diffuse thickening of the aortic valve cusps with reduced excursion. Mild aortic stenosis. Tricuspid Valve Tricuspid valve not well visualized, grossly normal. Mild tricuspid regurgitation. Pulmonic Valve Pulmonic valve not well visualized. Pericardium No pericardial effusion. Great Vessels Aortic root and proximal ascending aorta not well visualized, grossly normal. CONCLUSIONS 1. This was a technically difficult examination due to the patient's body habitus and clinical status. 2. Fibrocalcific degeneration is present in the aortic valve with evidence of mild valvular stenosis (PG 16 mmHg; MG 8 mmHg; estimated HAIM 1.8 cm2). 3. MItral leaflet thickening is present with mild mitral insufficiency. 4. There is no pericardial effusion present 5. The left ventricular chamber size and systolic function are normal. 6. The right heart structures were not optimally visualized. Mild tricuspid insufficiency is present with no pulmonary hypertension. 7. Fibrosis of the posteromedial papillary muscle is present. Kiana Vizcarra M.D. (Electronically Signed) Final Date: 23 July 2016 20:03 MEASUREMENTS (Male / Female) Normal Values 2D ECHO LV Diastolic Diameter PLAX 4.3 cm 4.2 - 5.9 / 3.9 - 5.3 cm LV Systolic Diameter PLAX 2.6 cm 2.1 - 4.0 cm LV Fractional Shortening PLAX 39.5 % 25 - 46 % LV Ejection Fraction 2D Teich 70.4 % IVS Diastolic Thickness 0.8 cm LVPW Diastolic Thickness 0.9 cm LV Relative Wall Thickness 0.4 RV Internal Dim ED PLAX 1.8 cm 1.9 - 3.8 cm LVOT Diameter 1.8 cm Aortic Root Diameter 2.8 cm LA Systolic Diameter LX 3.8 cm 3.0 - 4.0 / 2.7 - 3.8 cm LA Volume 29.0 cm 18 - 58 / 22 - 52 cm Ascending Aorta Diameter 2.9 cm DOPPLER AV Peak Velocity 188.0 cm/s AV Peak Gradient 14.1 mmHg AV Mean Velocity 138.0 cm/s AV Mean Gradient 8.0 mmHg AV Velocity Time Integral 40.8 cm LVOT Peak Velocity 121.0 cm/s LVOT Peak Gradient 5.9 mmHg LVOT Mean Velocity 81.1 cm/s LVOT Mean Gradient 3.0 mmHg LVOT Velocity Time Integral 26.8 cm LVOT Stroke Volume 68.2 cm AV Area Cont Eq vti 1.7 cm AV Area Cont Eq pk 1.6 cm MV Peak Velocity 154.0 cm/s MV Peak Gradient 9.5 mmHg MV Mean Velocity 85.0 cm/s MV Mean Gradient 3.0 mmHg Mitral E Point Velocity 106.0 cm/s Mitral A Point Velocity 138.0 cm/s Mitral E to A Ratio 0.8 MV PHT Velocity 117.0 cm/s MV Deceleration Mitchell 495.0 cm/s MV Pressure Half Time 70.9 ms MV Area PHT 3.1 cm MV Deceleration Time 280.0 ms TR Peak Velocity 183.0 cm/s TR Peak Gradient 13.4 mmHg Right Atrial Pressure 5.0 mmHg Pulmonary Artery Systolic Pressu 18.4 mmHg Right Ventricular Systolic Press 18.4 mmHg PV Peak Velocity 136.0 cm/s PV Peak Gradient 7.4 mmHg PV Mean Velocity 102.0 cm/s PV Mean Gradient 5.0 mmHg PV Velocity Time Integral 33.4 cm LV E' Lateral Velocity 9.9 cm/s Mitral E to LV E' Lateral Ratio 10.7 LV E' Septal Velocity 5.9 cm/s Mitral E to LV E' Septal Ratio 17.8
[2016-07-23 21:27] LABS: MEAN CORPUSCULAR HGB 30.6 PG (27.0-31.0); MEAN CORPUSCULAR HGB CONC 33.9 G/DL (33.0-37.0); MEAN CORPUSCULAR VOLUME 90.2 FL (81.0-99.0); PLATELET COUNT 162 /CUMM (130-400); RBC DISTRIBUTION WIDTH 14.8 % (11.5-14.5)
[2016-07-23 21:30] LABS: RED BLOOD CELL CT 2.95 /CUMM (4.20-5.40)
[2016-07-23 21:36] LABS: HEMATOCRIT 26.6 % (37-47)
[2016-07-23 22:21] VITALS: BP 124/60
[2016-07-24 07:08] VITALS: BP 118/64
--- NOTE | 2016-07-24 07:09 | PN- Housestaff ---
[address],[facility] 07/24/16 0709: Subjective Follow-up For: R. intertrochanteric femur fracture s/p ORIF DAY#2 parkinsons disease Subjective: Patient was seen and examined this morning, she is anxious and complained of pain 7 out of 10 right hip, she also endorsed nausea but no vomiting. She had 2 episodes of diarrhea last night nothing for today, denied abdominal pain, fever, chills. Denied chest pain, shortness of breath and cough. Patient was confused overnight but no agitation was reported. Vital signs are stable, has IV fluids running at 75 mL/h Review of Systems Constitutional: Reports: see HPI. Objective Last 24 Hrs of Vital Signs/I&O Vital Signs Date Time Temp Pulse Resp B/P Pulse O2 O2 Flow FiO2 Ox Delivery Rate 07/24 0708 98.1 86 20 118/64 96 Room Air 07/23 2221 99.0 84 20 124/60 94 Room Air 07/23 1451 97.2 88 20 122/58 100 Intake & Output 07/24 1600 / 0800 / 0000 Intake Total 840 1550 Output Total 2 350 250 Balance -2 490 1300 Intake, Blood 350 Product Intake, IV 600 600 Intake, Oral 240 600 Number 3 3 Bowel Movements Output, Stool 2 Output, Urine 350 250 Patient 50.802 kg Weight Physical Exam General Appearance: Alert, Oriented X3, Cooperative, No Acute Distress Skin: No Rashes, No Breakdown, No Significant Lesion, surgical site clean dressing HEENT: Atraumatic, PERRLA, EOMI, Mucous Membr. moist/pink Neck: Supple, No JVD Cardiovascular: Regular Rate, Normal S1, Normal S2, No Murmurs Lungs: Clear to Auscultation, Normal Air Movement Abdomen: Normal Bowel Sounds, Soft, No Tenderness Neurological: Normal Speech, Strength at 5/5 X4 Ext, Normal Tone, Sensation Intact, Cranial Nerves 3-12 NL, Reflexes 2+ Extremities: No Clubbing, No Cyanosis, No Edema, Normal Pulses Assessment/Plan Assessment: Ms. Santos is a 21 year old lady with past medical history of Parkinson disease, severe atherosclerosis all over her body, vitamin B12 deficiency, bilateral macular degeneration, nonspecific history of vascular stent on the left lower limb presented to ED on 07/21/16 with chief complaint of right hip pain after unwitnessed mechanical fracture. Imaging X-ray chest X-ray right hip X-ray right knee X-ray right tibia and fibula X-ray right ankle IMPRESSION: 1. Acute probable comminuted fracture intertrochanteric region proximal right femur with varus angulation and displacement of the fracture fragments. 2. Severe degenerative changes right knee and mild to moderate degenerative changes right hip and right ankle. 3. Ossific/calcific density projecting anterior to the tibial plateau on the lateral radiographs most likely represents soft tissue density projecting anteriorly on the lateral radiograph. Clinical correlation is also recommended. Small to moderate knee effusion. 4. Age indeterminate mild compression T8 vertebra. Echocardiogram CONCLUSIONS 1. This was a technically difficult examination due to the patient's body habitus and clinical status. 2. Fibrocalcific degeneration is present in the aortic valve with evidence of mild valvular stenosis (PG 16 mmHg; MG 8 mmHg; estimated HAIM 1.8 cm2). 3. MItral leaflet thickening is present with mild mitral insufficiency. 4. There is no pericardial effusion present 5. The left ventricular chamber size and systolic function are normal. 6. The right heart structures were not optimally visualized. Mild tricuspid insufficiency is present with no pulmonary hypertension. 7. Fibrosis of the posteromedial papillary muscle is present. Problem list #Right intertrochanteric femur fracture with angulation and displacement #Parkinson disease #Osteoarthritis #Right intertrochanteric femur fracture with angulation and displacement: Went for ORIF / -Post op Day #2 -Pain is controlled -Anemia due to acute blood loss; Patient received 2 units of due to h/h low of 6.3. Hemoglobin today is 9.8 -Continue adequate pain management Acetaminophen 650 every 6 when necessary Tramadol 50 every 6 when necessary Percocet 1 tab every 6 when necessary -Patient started to work with PT today, Weightbearing as tolerated -Daily dressing changes #Parkinson disease -Continue home dose Sinemet -Continue Lexapro 10 mg every a.m. by mouth -Patient seemed anxious, will start Xanax 0.25 twice a day as needed #Osteoarthritis -Continue pain management -Continue gabapentin 100 mg 3 times a day by mouth and 300 mg at bedtime #Hypokalemia and hypomagnesemia -Patient received K daur and mag ox DVT prophylaxis Lovenox CODE STATUS DNR/DNI Diet regular diet Consultation orthopedic surgery, cardiology, PT Problem List: 1. Closed intertrochanteric fracture of right femur Pain Ratin Pain Location: Right hip Pain Goal: Pain 4 or less Pain Plan: Acetaminophen 650 every 6 when necessary Tramadol 50 every 6 when necessary Percocet 1 tab every 6 when necessary Tomorrow's Labs & Rationales: CBC in setting of history of acute blood loss and leukocytosis CMP incidental of hypokalemia and hypomagnesemia REGINALD ALVAREZ MD 07/24/16 1622: Attending MD Review Statement Attending Statement Attending MD Statement: examined this patient, discuss w/resident/PA/TIRE GROOVER, agreed w/resident/PA/TIRE GROOVER, reviewed EMR data (avail), discussed with nursing, discussed with case mgmt, amended to note Attending Assessment/Plan: The patient was seen and discussed with house staff. Agree with the plan of care.
[2016-07-24 08:54] LABS: ABSOLUTE BASOPHIL COUNT 0 /CUMM (0.0-0.2); ABSOLUTE EOSINOPHIL COUNT 0 /CUMM (0.0-0.7); ABSOLUTE GRANULOCYTE CT 9.9 /CUMM (1.4-6.5); ABSOLUTE LYMPH COUNT 0.6 /CUMM (1.2-3.4); ABSOLUTE MONOCYTE COUNT 1.5 /CUMM (0.10-0.60); BASOPHIL % 0.1 % (0.0-2.0); EOSINOPHIL % 0.1 % (0-5); GRANULOCYTE % 82.4 % (42.2-75.2); HEMATOCRIT 28.4 % (37-47); MEAN CORPUSCULAR HGB 30.9 PG (27.0-31.0); MEAN CORPUSCULAR HGB CONC 34.4 G/DL (33.0-37.0); PLATELET COUNT 178 /CUMM (130-400); RBC DISTRIBUTION WIDTH 14.5 % (11.5-14.5); RED BLOOD CELL CT 3.15 /CUMM (4.20-5.40)
--- NOTE | 2016-07-24 09:15 | PN- Orthopedic ---
Subjective Subjective: Mild to moderate pain right hip. No complaints of fever calf pain chest pain or shortness of breath Objective Vital Signs and I&Os Vital Signs Date Time Temp Pulse Resp B/P Pulse O2 O2 Flow FiO2 Ox Delivery Rate 07/24 0708 98.1 86 20 118/64 96 Room Air 07/23 2221 99.0 84 20 124/60 94 Room Air 07/23 1451 97.2 88 20 122/58 100 Intake & Output 07/24 1600 07/24 0800 07/24 0000 07/23 1600 07/23 0807/23 0000 Intake Total 840 1550 1055 700 840 Output Total 350 250 400 275 100 Balance 490 1300 655 425 740 Intake, Blood 350 350 Product Intake, IV 600 600 225 600 600 Intake, Oral 240 600 480 100 240 Number 3 3 0 Bowel Movements Output, Urine 350 250 400 275 100 Physical Exam: Well-developed well-nourished no apparent distress. Elderly female looks stated age HEENT: Atraumatic, Neck: Supple, Respiratory: No respiratory distress Extremities: No edema, right hip range of motion is with mild pain, mildly limited as to be expected Right lateral hip and lower thigh lateral dressings were changed, incisions are clean dry and intact, deborah in place, no active bleeding. Mild right thigh swelling. Neurovascularly intact right lower extremity Bilateral calves are supple nontender Neuro: Alert and oriented x3 Psych: Mood affect normal, normal memory normal judgment. Skin: Warm and dry, no rash on exposed skin Assessment/Plan Assessment/Plan Postop day 2 status post right femur IM rodding secondary to hip subtrochanteric fracture -Continue DVT prophylaxis. -Weightbearing as tolerated -Out of bed with physical therapy -Transfer to [facility] when medically stable -Daily dressing changes Core Measures/Miscellaneous Venous Thromboembolism VTE Risk Factors: Acute medical illness (RIGHT HIP SURGERY) VTE Contraindications: Abn Clotting Times (NONE) VTE Diagnosis: No VTE Type: NONE VTE Confirmed by (Test): NONE Beta Brandy Is Beta Brandy a Home Med? No Antibiotics Is Patient on Antibiotics? Yes
--- NOTE | 2016-07-24 13:14 | Patient Discharge Instructions ---
Discharge Instructions General Discharge Information You were seen/treated for: Right hip fracture You had these procedures: Right hip open reduction internal fixation Do not soak the wound: Yes Other wound care: Clean, dry dressing change daily May shower but no soaking or bathing Special Instructions: Please follow-up with the orthopedic surgeon as directed. Please follow-up with PCP within 1-2 weeks after discharge. Have blood work done in 2 weeks: CBC and iron studies. Adjust iron supplementation as needed Activity Activity Self Limited: Yes Activity Limited to: Weight bear as tolerated Acute Coronary Syndrome Inclusion Criteria At DC or during hospital stay patient has or had the following: ACS DIAGNOSIS No Discharge Core Measures Meds if any: Prescribed or Continued at Discharge Meds if any: NOT Prescribed or Continued at Discharge Congestive Heart Failure Inclusion Criteria At DC or during hospital stay patient has or had the following: CHF DIAGNOSIS No Discharge Core Measures Meds if any: Prescribed or Continued at Discharge Meds if any: NOT Prescribed or Continued at Discharge Cerebrovascular accident Inclusion Criteria At DC or during hospital stay patient has or had the following: CVA/TIA Diagnosis No Discharge Core Measures Meds if any: Prescribed or Continued at Discharge Meds if any: NOT Prescribed or Continued at Discharge Venous thromboembolism Inclusion Criteria VTE Diagnosis No VTE Type NONE VTE Confirmed by (Test) NONE Discharge Core Measures - Per Current guidelines, there needs to be overlap - treatment for the first 5 days of Warfarin therapy. - If discharged on Warfarin prior to 5 days of - overlap therapy, the patient will need to be - assessed for post discharge needs including - *Post discharge parental anticoagulation - *Warfarin and/or parental anticoagulation education - *Follow up date to check INR post discharge At least 5 days overlap therapy as Inpatient No Meds if any: Prescribed or Continued at Discharge Note: Overlap Therapy is Warfarin and Anticoagulant Meds if any: NOT Prescribed or Continued at Discharge
--- NOTE | 2016-07-24 13:40 | Discharge Summary ---
See Addendum Visit Information Visit Dates Admission Date: 07/21/16 Discharge Date: 07/24/2016 Hospital Course Course Attending Physician: REGINALD ALVAREZ MD Primary Care Physician: [facility] Course: Mrs. Santos is a 81-year-old lady with a PMH of Parkinson's disease, macular degeneration, PVD, vitamin B12 deficiency presented to [place] with complaints of right hip pain after a mechanical fall and [place]. The fall occurred while attempting to transfer herself using a wheelchair. At her baseline she is independent with bathing and eating does require assistance with ADLs. POA and nephew Mr. Gavin Coronel. VS on admission: BP 150/85, HR 76, RR 16, SPO2 100% on RA, T 96.0 PE on admission: no acute distress. Mucous membranes pink and moist. RRR, normal S1/S2. Lungs CTA BL. Normal bowel sounds. X-rays of chest, right/knee/tibia/fibula/ankle: Acute probable comminuted fracture intertrochanteric region proximal right femur with varus angulation and displacement of the fracture fragments. Severe degenerative changes right knee and mild to moderate degenerative changes right hip and right ankle. Ossific/calcific density projecting anterior to the tibial plateau on the lateral radiographs most likely represents soft tissue density projecting anteriorly on the lateral radiograph. Clinical correlation is also recommended. Small to moderate knee effusion. Age indeterminate mild compression T8 vertebra. Patient was admitted to the general medicine floor for management of problems: 1. Right intertrochanteric femur fracture with angulation and displacement 2. Mildly abnormal EKG, heart murmur 3. Anemia of blood loss 4. Parkinson's disease 5. Osteoarthritis Hospital course: 1. Right intertrochanteric femur fracture with angulation and displacement * The patient was seen by Dr. Vizcarra (cardiology) for stratification. Previous EKG showed minimal ST-T wave changes in the lateral leads * Bedside echocardiogram (07/23/2016): This was a technically difficult examination due to the patient's body habitus and clinical status. Fibrocalcific degeneration is present in the aortic valve with evidence of mild valvular stenosis (PG 16 mmHg; MG 8 mmHg; estimated HAIM 1.8 cm2). MItral leaflet thickening is present with mild mitral insufficiency. There is no pericardial effusion present The left ventricular chamber size and systolic function are normal. The right heart structures were not optimally visualized. Mild tricuspid insufficiency is present with no pulmonary hypertension. Fibrosis of the posteromedial papillary muscle is present * From a cardiac standpoint the patient did have an elevated surgical risk based on her age, limited baseline physical activity and history of vascular disease. Patient was also noted to have some atrial and ventricular ectopy on exam during the echocardiogram with possibility of perioperative arrhythmias * The patient underwent right femoral intramedullary rodding on 07/22/2016 for right side trochanteric femur fracture with approximately 50-100 mL blood loss * Post surgical recommendations: Weightbearing as tolerated. Follow-up with orthopedics within 2 weeks after discharge 2. Mildly abnormal EKG, heart murmur * Recommendations as above 3. Anemia of blood loss * Hospital day to H&H dropped to 6.3/19.0 down from 10.9/32.3 and admission. Transfused 2 units PRBCs with follow-up H&H remaining stable. * We'll start the patient on ferrous sulfate 325 mg by mouth twice a day for 2 weeks. * Please have CBC and iron studies done in 2 weeks and adjust iron supplementation as needed 4. Parkinson's disease * Stable at this time. 5. Anxiety * We started the patient on trial of Xanax 0.25 mg BID PRN. Recommend postdischarge follow-up with lowest required dose for symptom control 6. DVT prophylaxis * Throughout the hospital course patient was maintained on Lovenox 40 mg subcutaneous daily. Postdischarge, the patient should be on this for 2 weeks at which point follow-up with her orthopedic physician on DVT prophylaxis recommendations beyond this duration 7. CODE STATUS * DNR/DNI Allergies: Coded Allergies: Influenza Virus Vaccines (NOTED ON W-10 07/21/16) Disposition Summary Disposition Principal Diagnosis: Right intertrochanteric femur fracture with angulation and displacement Additional Diagnosis: Parkinson's disease Osteoarthritis Discharge Disposition: SNF Discharge Instructions General Discharge Information Code Status: Do Not Resucitate/Intubat Patient's Diet: Regular diet Patient's Activity: Weightbearing as tolerated Follow-Up Instructions/Appts: Please follow-up with the orthopedic doctor within 2 weeks after discharge. Please follow-up with the PCP within one week after discharge. Clean, dry dressing change daily. May shower but no soaking or bathing Medications at Discharge Discharge Medications: Stop taking the following medications: Morphine Sulfate (Morphine Sulfate ER) 60 MG TABLET.ER ORAL Q12H Qty = 60 Continue taking these medications: Aspirin (Ecotrin*) 81 MG TABLET. 1 Tablet ORAL DAILY Comments: PER W- Tizanidine HCl (Tizanidine HCl) (Unknown Strength) TABLET Unknown Dose ORAL As Directed Qty = 30 Comments: W-10 STATES TIZANIDINE 1MG BID, MED CLAIM HX SHOWS 2MG TID Acetaminophen (Acetaminophen) 500 MG TABLET 2 Tablet ORAL TWICE DAILY Comments: PER W-10 NTE 3GM APAP IN 24H Gabapentin (Neurontin) 300 MG CAPSULE 1 Capsule ORAL TAKE AT BEDTIME Comments: PER W- Gabapentin (Neurontin) 100 MG CAPSULE 1 Capsule ORAL THREE TIMES DAILY Comments: PER W- Escitalopram Oxalate (Lexapro) 10 MG TABLET 1 Tablet ORAL Every Morning Comments: PER W- Naloxone HCl (Naloxone HCl) 0.4 MG/ML VIAL 0.4 Milligram In the nose As Directed as needed for OPIOID REDUCED RESP. DEPRESSIO Comments: PER W- WAIT 2-3 MIN IF NO RESPONSE OR SLOW TO RESPOND, REPEAT ONCE IN OTHER NOSTRIL Sennosides (Senna) 8.6 MG TABLET 1 Tablet ORAL Every night Comments: PER W- Docusate Sodium (Colace) 100 MG CAPSULE 1 Capsule ORAL DAILY Comments: PER W- Carbidopa/Levodopa (Carbidopa-Levodopa 25-100 Tab) 25 MG-100 MG TABLET 2 Tablet ORAL THREE TIMES DAILY Comments: PER W- Melatonin (Melatonin) 3 MG TABLET 1 Tablet ORAL Every night Comments: PER W- Ergocalciferol (Vitamin D2) (Vitamin D2) 50,000 UNIT CAPSULE 1 Capsule ORAL ONCE A MONTH Comments: PER W-10 ON THE OF EVERY MONTH Cyanocobalamin (Vitamin B-12) (Cyanocobalamin Injection) 1,000 MCG/ML VIAL 1 Milliliters INTRAMUSC ONCE A MONTH Comments: PER W-10 ORDERED ON THE OF EVERY MONTH Acetaminophen (Acephen) 650 MG SUPP.RECT 1 SUPPOSITORY RECTALLY Q4H as needed for PAIN/TEMP>101 Comments: PER W-10 IF UNABLE TO TAKE PO FORM - NTE 3GM APAP IN 24H Acetaminophen (Acetaminophen) 325 MG CAPSULE 2 Capsule ORAL Q4H as needed for PAIN/TEMP>101 Comments: PER W-10 NTE 3GM IN 24H Oxycodone HCl (Oxycodone HCl) 5 MG TABLET 1 Tablet ORAL Q12H as needed for PAIN Comments: PER W- Bisacodyl (Dulcolax) 10 MG SUPP.RECT 1 Suppository RECTAL DAILY as needed for CONSTIPATION Comments: PER W- Na Phos,M-B/Na Phos,Di-Ba (Fleet Enema) 19 GRAM-7 GRAM/118 ML ENEMA 1 Enema RECTAL DAILY as needed for CONSTIPATION Comments: PER - IF MOM INEFFECTIVE Magnesium Hydroxide (Milk Of Magnesia) 400 MG/5 ML ORAL.SUSP 30 Milliliters ORAL Every 3 days as needed for CONSTIPATION Comments: PER W- Propylene Glycol/Peg 400/Pf (Systane 0.3-0.4% Eye Drops) 0.3 %-0.4 % DROPERETTE 1 DROP In the eye DAILY Comments: PER Diclofenac Sodium (Voltaren) 1 % GEL..GRAM. 4 Gram On the skin THREE TIMES DAILY Instructions: apply to affected area(s) Comments: PER - Start taking the following new medications: Enoxaparin Sodium (Lovenox) 40 MG/0.4 ML SYRINGE 40 Milligram Inject into fatty tissue DAILY Days = 28 No Refills Instructions: Please consult with orthopedics after the 2 weeks for further recommendations on DVT prophylaxis Tramadol HCl (Tramadol HCl) 50 MG TABLET 1 Tablet ORAL EVERY SIX HOURS NEEDED as needed for PAIN SCALE 4-6 ( MODERATE) Qty = 30 No Refills Instructions: Please consult orthopedics if continued analgesia is required beyond 2 weeks Ferrous Sulfate (Ferrous Sulfate) 325 MG (65 MG IRON) TABLET 1 Tablet ORAL TWICE DAILY Qty = 60 No Refills Copies To: [address],JULIO CESAR [place]; [address]O L[address],Tami MATAMOROS Attending MD Review Statement Documenting Attending: REGINALD ALVAREZ MD Other Findings: The patient was seen on the day of discharge and agree with the plan of care. Will need to monitor H/H. PT/OT, fall prevention.
[2016-07-24 14:04] VITALS: BP 125/70
[2016-07-24 21:58] VITALS: BP 120/68
[2016-07-25 06:31] VITALS: BP 122/70
--- NOTE | 2016-07-25 07:07 | PN- Housestaff ---
[address],[facility] 07/25/16 0707: Subjective Follow-up For: R. intertrochanteric femur fracture s/p ORIF DAY#3 parkinsons disease Subjective: patient was seen and examined this morning. She endorsed right hip pain 2/10 on rest. She worked with PT yesterday. Patient denied chest pain, SOB or cough. She had BM yesterday and urinate in bedpan. The patient wants to go to home. Vital signs are stable. Review of Systems Constitutional: Reports: see HPI. Objective Last 24 Hrs of Vital Signs/I&O Vital Signs Date Time Temp Pulse Resp B/P Pulse O2 O2 Flow FiO2 Ox Delivery Rate 07/25 0631 98.5 86 20 122/70 100 Room Air 07/24 2158 98.0 66 20 120/68 97 07/24 1404 98.0 80 20 125/70 94 Intake & Output 07/25 0800 07/25 0000 07/24 1600 Intake Total 450 1100 Output Total 250 302 Balance -250 450 798 Intake, IV 150 600 Intake, Oral 300 500 Output, Stool 2 Output, Urine 250 300 Patient 50.802 kg Weight Physical Exam General Appearance: Alert, Cooperative, No Acute Distress Skin: No Rashes, No Breakdown, No Significant Lesion, bruse over the surgical site HEENT: Atraumatic, PERRLA, EOMI, Mucous Membr. moist/pink Cardiovascular: Regular Rate, Normal S1, Normal S2, No Murmurs Lungs: Clear to Auscultation, Normal Air Movement Abdomen: Normal Bowel Sounds, Soft, No Tenderness Neurological: Normal Speech, Strength at 5/5 X4 Ext, Normal Tone, Sensation Intact, Cranial Nerves 3-12 NL, Reflexes 2+ Extremities: No Clubbing, No Cyanosis, No Edema, Normal Pulses Assessment/Plan Assessment: Ms. Santos is a 21 year old lady with past medical history of Parkinson disease, severe atherosclerosis all over her body, vitamin B12 deficiency, bilateral macular degeneration, nonspecific history of vascular stent on the left lower limb presented to ED on 07/21/16 with chief complaint of right hip pain after unwitnessed mechanical fracture. Imaging X-ray chest X-ray right hip X-ray right knee X-ray right tibia and fibula X-ray right ankle IMPRESSION: 1. Acute probable comminuted fracture intertrochanteric region proximal right femur with varus angulation and displacement of the fracture fragments. 2. Severe degenerative changes right knee and mild to moderate degenerative changes right hip and right ankle. 3. Ossific/calcific density projecting anterior to the tibial plateau on the lateral radiographs most likely represents soft tissue density projecting anteriorly on the lateral radiograph. Clinical correlation is also recommended. Small to moderate knee effusion. 4. Age indeterminate mild compression T8 vertebra. Echocardiogram CONCLUSIONS 1. This was a technically difficult examination due to the patient's body habitus and clinical status. 2. Fibrocalcific degeneration is present in the aortic valve with evidence of mild valvular stenosis (PG 16 mmHg; MG 8 mmHg; estimated HAIM 1.8 cm2). 3. MItral leaflet thickening is present with mild mitral insufficiency. 4. There is no pericardial effusion present 5. The left ventricular chamber size and systolic function are normal. 6. The right heart structures were not optimally visualized. Mild tricuspid insufficiency is present with no pulmonary hypertension. 7. Fibrosis of the posteromedial papillary muscle is present. Problem list #Right intertrochanteric femur fracture with angulation and displacement #Parkinson disease #Osteoarthritis #Right intertrochanteric femur fracture with angulation and displacement: Went for ORIF 03/04 -Post op Day #3 -Pain is controlled -Anemia due to acute blood loss; Patient received 2 units of due to h/h low of 6.3. Hemoglobin today is 8.4<9.8 -Will start ferrious salfate -Continue adequate pain management Acetaminophen 650 every 6 when necessary Tramadol 50 every 6 when necessary -Dcontinue Percocet 1 tab every 6 when necessary, patient expirenced confusion and visual hallucination with opioids -PT weightbearing as tolerated -Daily dressing changes -Patient is for discharge today #Parkinson disease -Continue home dose Sinemet -Continue Lexapro 10 mg every a.m. by mouth -Patient seemed anxious, continue Xanax 0.25 twice a day as needed #Osteoarthritis -Continue pain management -Continue gabapentin 100 mg 3 times a day by mouth and 300 mg at bedtime #Hypokalemia and hypomagnesemia -Patient received K daur and mag ox #Mild leukocytosis -12.3<12 -Patient remined afibrile with stable vital signs -Will obtain UA and continue to follow DVT prophylaxis Lovenox CODE STATUS DNR/DNI Diet regular diet Consultation orthopedic surgery, cardiology, PT Problem List: 1. Closed intertrochanteric fracture of right femur Pain Ratin Pain Location: Right hip Pain Goal: Pain 4 or less Pain Plan: Mild pain pathway Tomorrow's Labs & Rationales: NONE REGINALD ALVAREZ MD 07/25/16 1205: Attending MD Review Statement Attending Statement Attending MD Statement: examined this patient, discuss w/resident/PA/SPAGHETTI PRESS HELPER, agreed w/resident/PA/SPAGHETTI PRESS HELPER, discussed with family, reviewed EMR data (avail), discussed with nursing, discussed with case mgmt, amended to note Attending Assessment/Plan: The patient was seen and agree with the plan of care as outlined.
[2016-07-25 08:28] LABS: ABSOLUTE BASOPHIL COUNT 0 /CUMM (0.0-0.2); ABSOLUTE EOSINOPHIL COUNT 0 /CUMM (0.0-0.7); ABSOLUTE GRANULOCYTE CT 9.8 /CUMM (1.4-6.5); ABSOLUTE LYMPH COUNT 0.9 /CUMM (1.2-3.4); ABSOLUTE MONOCYTE COUNT 1.6 /CUMM (0.10-0.60); BASOPHIL % 0.1 % (0.0-2.0); EOSINOPHIL % 0 % (0-5); GRANULOCYTE % 80.1 % (42.2-75.2); HEMATOCRIT 24.7 % (37-47); MEAN CORPUSCULAR HGB 31.1 PG (27.0-31.0); MEAN CORPUSCULAR VOLUME 91.5 FL (81.0-99.0); MEAN PLATELET VOLUME 9.8 FL (7.4-10.4); PLATELET COUNT 200 /CUMM (130-400); RBC DISTRIBUTION WIDTH 14.2 % (11.5-14.5); WHITE BLOOD CELL COUNT 12.3 /CUMM (4.8-10.8)
[2016-07-25] MEDS ORDERED: FERROUS SULFAT325 M3 PO (11:31)
[2016-07-25 13:07] VITALS: BP 122/70
[2016-07-25] MEDS ORDERED: LOVENOX40 MG/0.1 SC (13:27)
[2016-07-25] MEDS ORDERED: TRAMADOL HCL50 M1 PO (13:27)
== END 2016-07-25 14:00 | DRG 481 ==
LOC: ENRESERVTM → ENRESERVDT → ERH 15:24 → ERHI 19:23 → ENPENDDIS 19:23 → 2NA 19:23
PROVIDERS: Physician Assistant; Physician Assistant Medical; Student in an Organized Health Care Education/Training Program; ADMIT Internal Medicine
PROC: 0QH806Z Insertion of Intramedullary Internal Fixation Device into Right Femoral Shaft, Open Approach (ICD-10-PCS; principal; 2016-07-22)
PROC: 30233N1 Transfusion of Nonautologous Red Blood Cells into Peripheral Vein, Percutaneous Approach (ICD-10-PCS; 2016-07-23)
DX: S72.141A Displaced intertrochanteric fracture of right femur, initial encounter for closed fracture (principal); D62 Acute posthemorrhagic anemia; G20 Parkinson's disease; I73.9 Peripheral vascular disease, unspecified; M19.90 Unspecified osteoarthritis, unspecified site; E53.8 Deficiency of other specified B group vitamins; W18.30XA Fall on same level, unspecified, initial encounter; Z91.81 History of falling; Y92.129 Unspecified place in nursing home as the place of occurrence of the external cause; H17.9 Unspecified corneal scar and opacity; H35.30 Unspecified macular degeneration
CPT/HCPCS: 2NAP; 36415; 73502-RT; 73562-RT; 73590-RT; 73610-RT; 81001; 82436; 86920; 87086; 93005; 93010; 93306; 96374; 96375; 96376; 97112-GO; 97161-GP; 97530-GO; J0131; J0690; J1644; J1650; J2405; P9016